=== PATIENT | male | born 1940 | race Caucasian/White ===

== ENCOUNTER → 2016-12-16 | Outpatient (CLI) | payer OTHER ==
[~2016-12-16] MED LIST: ALPR-411 PO; ASPI81TA28 PO; ATOR-26 PO; CHOL100010 PO; CHOL100041 PO; CLBCRM30 EXT; CLOB-65 TOP; CZR25 PO; DABI150C PO; ESCI10TA17 PO; FOLI1TAB7 PO; INSPMPHMLG; LOSA100T2 PO; LXP/20 PO; MELA1TAB3 PO; MOXI400T2 PO; OXYC-57 PO; PRLSR20 PO; Prednisone PO; SELENIMIN PO; TRAZ50TA35 PO
[2016-12-16 15:32] LABS: BASO % 0.5 %; BASO ABS # 0.03 K/uL (0-0.2); COMPLETE YES; EOS % 1.7 %; HEMATOCRIT 41.6 % (42-52); IG% 0.2 %; LYMPH % 36.4 %; MEAN CELL VOLUME 85.8 fL (80-100); MEAN CORPUSCULAR HGB CONC 32.7 g/dl (32-36); MEAN PLATELET VOLUME 10.1 fL (7.4-10.4); MONO % 18.2 %; PLATELET COUNT 254 K/uL (130-400); RED BLOOD COUNT 4.85 M/uL (4.7-6.1); WHITE BLOOD COUNT 6.04 K/uL (4.8-10.8)
[2016-12-16 16:11] LABS: ALT/SGPT 48 U/L (12-78); BLOOD UREA NITROGEN 19 mg/dl (7-18); BUN/CREATININE RATIO 19.7 (10-20); CALCIUM 9.1 mg/dl (8.5-10.1); CARBON DIOXIDE 28 mmol/L (21-32); CHLORIDE 102 mmol/L (98-107); CREATININE 0.95 mg/dl (0.60-1.40); GLUCOSE 250 mg/dl (70-99); POTASSIUM 3.7 mmol/L (3.5-5.1); SODIUM 138 mmol/L (136-145)
[2016-12-16 16:14] LABS: AST/SGOT 31 U/L (15-37)
[2016-12-17 06:41] LABS: ESTIMATED AVERAGE GLUCOSE 160 mg/dl; HA1C FLAG Normal (Normal)
== END | disposition home or self-care (01) ==
LOC: C.LAB 14:30
DX: E11.9 Type 2 diabetes mellitus without complications (principal); E78.5 Hyperlipidemia, unspecified; D64.9 Anemia, unspecified

== ENCOUNTER → 2017-01-27 | Outpatient (CLI) | payer OTHER ==
--- NOTE | 2017-01-27 11:56 | DIAGNOSTIC IMAGING REPORT ---
BILATERAL CAROTID DOPPLER STUDY HISTORY: Dizziness. Abnormal gait. COMPARISON: None. TECHNIQUE: Real-time, grayscale, and color Doppler sonography of the carotid arteries was performed. Imaging reviewed in the transverse and longitudinal planes. All measurements were calculated based on NASCET criteria. FINDINGS: Antegrade flow is seen in the bilateral vertebral arteries. The brachial pressures are hemodynamically similar. Moderate calcified plaque within the bilateral proximal internal carotid arteries. The peak systolic velocity within the right ICA is 57 cm/s. The right systolic ratio is 0.7. The peak systolic velocity within the left ICA is 69 cm/s. The left systolic ratio is 0.7. IMPRESSION: No hemodynamically significant stenosis seen within the carotid arteries. Electronically signed by: Nomi Monroy M.D. 01/27/2017 11:55 AM Dictated Date/Time: 01/27/2017 11:49 AM
--- NOTE | 2017-01-27 12:12 | DIAGNOSTIC IMAGING REPORT ---
CT OF THE HEAD WITHOUT CONTRAST CLINICAL HISTORY: CEREBROVASCULAR DISEASE, GAIT APRAXIA COMPARISON STUDY: Head CT August 18, 2006. CT DOSE: 765.09 mGycm TECHNIQUE: Helical axial images of the head were obtained without IV contrast. Automated exposure control was utilized for the study. FINDINGS: No acute intracranial hemorrhage, midline shift or mass effect is present. Ventricular system is normal. Basilar cisterns are patent. There are no extra axial collections. Brain volume is normal for age. There are no findings to suggest acute dural sinus thrombosis or acute territorial infarct. There are no calvarial abnormalities. There is mild mucosal thickening of the sinuses. There are post surgical findings within the sinuses. Mastoid air cells are clear. IMPRESSION: No acute intracranial findings. Electronically signed by: Dorian Lindquist M.D. 01/27/2017 12:11 PM Dictated Date/Time: 01/27/2017 12:09 PM
--- NOTE | 2017-01-31 11:54 | CODING QUERY MEDICAL NECESSITY ---
SUPPORTING DIAGNOSIS NEEDED Dr. Crystal, A supporting diagnosis is required for the test/procedure performed on this patient in order for us to be reimbursed by the patient's insurance. Please provide a supporting diagnosis for the following test/procedure listed below next to the test name along with your signature. *If there is no additional diagnosis for this patient that would support the following test/procedure please document that below next to the test/procedure. Test(s)/Procedure(s) that require a supporting diagnosis: * ([id number]) (CAROTID DOP) DUPLEX NECK ARTER DIAGNOSIS: DATE OF SERVICE: 01/27/17 Provider Signature: Date: Thank you Joseluis Romero Health Information Management Once completed, please kindly fax back to [phone] For questions please call [phone]
== END | disposition home or self-care (01) ==
LOC: C.ULTR 10:53
PROVIDERS: ATTEND Psychiatry & Neurology Neurology
DX: I67.9 Cerebrovascular disease, unspecified (principal); R48.2 Apraxia

== ENCOUNTER → 2017-03-06 | Outpatient (CLI) | payer OTHER ==
[2017-03-06 17:01] LABS: PROSTATE SPECIFIC ANTIGEN 2.84 ng/ml (0.000-4.000); THYROID STIMULATING HORMONE 0.615 uIu/ml (0.300-4.500)
[2017-03-07 07:30] LABS: ESTIMATED AVERAGE GLUCOSE 177 mg/dl; HA1C FLAG Normal (Normal)
== END | disposition home or self-care (01) ==
LOC: C.LAB 15:17
PROVIDERS: ATTEND Urology
DX: E11.9 Type 2 diabetes mellitus without complications (principal); N40.1 Benign prostatic hyperplasia with lower urinary tract symptoms

== ENCOUNTER → 2017-05-02 | Outpatient (CLI) | payer OTHER ==
[2017-05-02 11:39] LABS: BASO % 0.6 %; BASO ABS # 0.03 K/uL (0-0.2); COMPLETE YES; EOS % 2.1 %; HEMATOCRIT 45.1 % (42-52); IG% 0.4 %; LYMPH % 26.3 %; LYMPH ABS # 1.28 K/uL (1.2-3.4); MEAN CELL VOLUME 94.4 fL (80-100); MEAN CORPUSCULAR HEMOGLOBIN 32.6 pg (25-34); MEAN CORPUSCULAR HGB CONC 34.6 g/dl (32-36); MEAN PLATELET VOLUME 10.3 fL (7.4-10.4); MONO % 16.8 %; NEUT % 53.8 %; PLATELET COUNT 244 K/uL (130-400); RED BLOOD COUNT 4.78 M/uL (4.7-6.1); WHITE BLOOD COUNT 4.87 K/uL (4.8-10.8)
[2017-05-02 12:05] LABS: ALT/SGPT 48 U/L (12-78); BLOOD UREA NITROGEN 18 mg/dl (7-18); BUN/CREATININE RATIO 19.8 (10-20); CALCIUM 9.4 mg/dl (8.5-10.1); CARBON DIOXIDE 31 mmol/L (21-32); CHLORIDE 101 mmol/L (98-107); GLUCOSE 190 mg/dl (70-99); POTASSIUM 3.5 mmol/L (3.5-5.1); SODIUM 138 mmol/L (136-145)
[2017-05-02 12:08] LABS: AST/SGOT 29 U/L (15-37)
[2017-05-02 12:16] LABS: RATIO 49.4 mcg/mg (0-30.0)
== END | disposition home or self-care (01) ==
LOC: C.LAB 10:40
DX: D64.9 Anemia, unspecified (principal); I10 Essential (primary) hypertension; E78.5 Hyperlipidemia, unspecified

== ENCOUNTER 2017-06-17 09:37 | Inpatient (IN) | payer OTHER ==
[~2017-06-17] VITALS: Ht 170.2 cm; Wt 91.0 kg
[~2017-06-17 09:37] MED LIST changes: -CHOL100041 PO; -CLBCRM30 EXT; -CZR25 PO; -LXP/20 PO; -MELA1TAB3 PO; -OXYC-57 PO
[2017-06-17] MEDS ORDERED: LXP/20 PO (10:16)
[2017-06-17] MEDS ORDERED: CLBCRM30 EXT (10:16)
[2017-06-17] MEDS ORDERED: CZR25 PO (10:16)
[2017-06-17] MEDS ORDERED: CHOL100041 PO (10:16)
[2017-06-17] MEDS ORDERED: MELA1TAB3 PO (10:16)
--- NOTE | 2017-06-17 10:39 | DIAGNOSTIC IMAGING REPORT ---
R KNEE 3 VIEWS CLINICAL HISTORY: 77 years-old Male presenting with right knee edema . TECHNIQUE: Frontal, lateral, and sunrise views of the right knee were obtained. COMPARISON: None. FINDINGS: No acute fracture or malalignment. Large knee joint effusion noted. Minimal osteophyte formation at the medial compartment and patellofemoral compartment. Minimal lateral subluxation of the patella likely secondary to the presence of the large effusion. Osteopenia may be present. Atherosclerosis. IMPRESSION: Large knee joint effusion. No radiographic evidence of acute osseous injury. Electronically signed by: Surjit Mcduffie M.D. 06/17/2017 10:37 AM Dictated Date/Time: 06/17/2017 10:36 AM
--- NOTE | 2017-06-17 10:52 | DIAGNOSTIC IMAGING REPORT ---
R ANKLE MIN 3 VIEWS ROUTINE CLINICAL HISTORY: Right ankle pain following fall. COMPARISON: None FINDINGS: There is an acute mildly displaced fracture of the medial malleolus. There is no ankle mortise widening. There is moderate ankle soft tissue swelling, greater medially. There is a suspected acute nondisplaced distal right fibular fracture. There is an equivocal nondisplaced fracture of the posterior distal right tibia. There is extensive vascular calcification. IMPRESSION: 1. Acute mildly displaced fracture of the medial malleolus. 2. Probable acute nondisplaced right fibular fracture. 3. Possible nondisplaced fracture of the posterior distal right tibia. 4. No ankle mortise widening. Electronically signed by: Dorian Lindquist M.D. 06/17/2017 10:51 AM Dictated Date/Time: 06/17/2017 10:35 AM
--- NOTE | 2017-06-17 11:15 | EMERGENCY ROOM VISIT NOTE ---
ED Visit Note First contact with patient: 10:08 CHIEF COMPLAINT: Right Knee and Ankle pain HISTORY OF PRESENT ILLNESS: This 77 yo male patient presents to the emergency department one day after sustaining an injury to the right ankle and foot with a twisting, eversion motion when he was climbing a ladder and fell off. The patient complains of pain along the outside of the ankle. The patient reports radiating pain into the foot. The patient rates the pain as sharp and 7/10. The patient is able to bear weight on the foot, however, this significantly worsens the discomfort. Constant pain, worse with movement, weight bearing, and the dependent position. There is diffuse knee pain, the patient is able to move their toes. No numbness or weakness of the foot, no laceration, but there is some redness noted on the anterior aspect of the ankle which is warm. The patient has not had a previous fracture to this ankle. The patient has taken no medications for the pain. The patient denies any other injury. The patient states he was attempting to use crutches which she had at home, however was unsuccessful due to his instability. REVIEW OF SYSTEMS: A 6 system review of systems was completed with positives and pertinent negatives listed in the HPI. ALLERGIES: None MEDICATIONS: Please see list. Medication list was reviewed at bedside. PMH: Diabetes mellitus, fibrosis, atrial fibrillation, pacemaker, hyperlipidemia , hypertension SOCIAL HISTORY: The patient lives locally with family. He denies drug, alcohol , tobacco use. PHYSICAL EXAM: Vital Signs: Reviewed Nurse's notes, vital signs stable. GENERAL : This is a 77-year-old white male, no acute distress, but appears in pain, well -developed, well-nourished. MENTAL STATUS: Alert, oriented to person place and time, and cooperative. MUSCULOSKELETAL: The right ankle is moderately swollen and tender over the medial malleolus, but the skin is intact and there is no ligamentous instability. There is no fifth metatarsal tenderness. There is no tenderness over the rest of the foot. There is a small, erythematous patch on the anterior aspect of the right ankle. There is no calf or tibia/fibular tenderness, but there is distal, lateral knee tenderness. There is no visual deformity. The foot and toes are warm and well-perfused. Dorsalis pedis pulse 2+. Sensation to pain and light touch is intact. Capillary refill less than 2 seconds. RADIOLOGY: X-Ray Right Ankle: R ANKLE MIN 3 VIEWS ROUTINE CLINICAL HISTORY: Right ankle pain following fall. COMPARISON: None FINDINGS: There is an acute mildly displaced fracture of the medial malleolus. There is no ankle mortise widening. There is moderate ankle soft tissue swelling, greater medially. There is a suspected acute nondisplaced distal right fibular fracture. There is an equivocal nondisplaced fracture of the posterior distal right tibia. There is extensive vascular calcification. IMPRESSION: 1. Acute mildly displaced fracture of the medial malleolus. 2. Probable acute nondisplaced right fibular fracture. 3. Possible nondisplaced fracture of the posterior distal right tibia. 4. No ankle mortise widening. Electronically signed by: Dorian Lindquist M.D. 06/17/2017 10:51 AM Dictated Date/Time: 06/17/2017 10:35 AM X-Ray Right Knee: R KNEE 3 VIEWS CLINICAL HISTORY: 77 years-old Male presenting with right knee edema . TECHNIQUE: Frontal, lateral, and sunrise views of the right knee were obtained. COMPARISON: None. FINDINGS: No acute fracture or malalignment. Large knee joint effusion noted. Minimal osteophyte formation at the medial compartment and patellofemoral compartment. Minimal lateral subluxation of the patella likely secondary to the presence of the large effusion. Osteopenia may be present. Atherosclerosis. IMPRESSION: Large knee joint effusion. No radiographic evidence of acute osseous injury. Electronically signed by: Surjit Mcduffie M.D. 06/17/2017 10:37 AM Dictated Date/Time: 06/17/2017 10:36 AM EMERGENCY DEPARTMENT COURSE: I examined the patient. X-rays of the right ankle and knee were reviewed by myself and read by radiology and reveal findings as previously described. I did attempt to consult with Dr. Thorne and was advised by the secretaries that he would be coming in to see a patient and that I should find him then. After approximately 30-45 minutes, I was unsuccessful at locating Dr. Thorne, so I did ask to have him paged again, and was given the phone number for his personal cell phone. I did attempt to call Dr. Thorne twice, leaving 1 voicemail. I still had not heard back from him, so again spoke with the secretaries, and was told that he was in the operating room. The secretaries did encourage me to call the operating room extension and ask for Dr. Thorne. I did this and was given the circulating RN who advised me that she would have Dr. Thorne call me after he closes his surgery. I did speak with Dr. Thorne who recommended admission and surgery. Based on the patient's PMH, he will be admitted to the hospitalist service. This was discussed with the patient and he is in agreement. The patient did initially refuse pain medication, but does request it now. He was given 4mg Morphine IM and 4mg Zofran SL. An IV was then initiated per the request of the hospitalist and labs were drawn. The patient was seen and evaluated by Dr. Lozoya. A posterior leg with stirrup orthoglass splint was applied to the ankle under my direction and the position was satisfactory. Neurovascular status was rechecked and intact. The patient was seen by the hospitalist regarding admission. Please see his dictation for further management and care. DIFFERENTIAL DIAGNOSIS: fracture, contusion, cellulitis, sprain, strain, DM neuropathy, and others. DIAGNOSIS: distal tibia/fibula fracture of the right leg Problem List Medical Problems: (1) High cholesterol Status: Chronic (2) HTN (hypertension) Status: Chronic (3) Pacemaker Status: Chronic Surgical Problems: (1) History of cardiac catheterization Status: Resolved (2) History of splenectomy Status: Resolved Current/Historical Medications Scheduled Aspirin (Aspirin Ec), 81 MG PO QAM Atorvastatin (Lipitor), 80 MG PO QAM Cholecalciferol (D 1000), 4,000 UNITS PO DAILY Dabigatran Etexilate Mesylate (Pradaxa), 150 MG PO BID Escitalopram Oxalate (Escitalopram Oxalate), 20 MG PO DAILY Folic Acid (Folvite), 2 MG PO QAM Insulin Human Lispro (Insulin Humalog Pump ), 1 EA N/A UD Losartan Potassium (Losartan Potassium), 25 MG PO DAILY Melatonin-Pyridoxine (Melatonin), 1 TAB PO HS Moxifloxacin Hcl (Avelox), 1 TAB PO DIRECTED Omeprazole (Prilosec), 20 MG PO QAM Trazodone Hcl (Trazodone), 25 MG PO HS Scheduled PRN Clobetasol Propionate (Clobetasol Propionate Cream 0.05%), 1 APPLN EXT BID PRN for Itching Allergies Coded Allergies: No Known Allergies (Verified , 06/17/17) Vital Signs Date Time Temp Pulse Resp B/P (MAP) Pulse Ox O2 Delivery O2 Flow Rate FiO2 06/17/17 15:48 62 16 140/64 96 06/17/17 14:40 96 Room Air 06/17/17 14:19 63 16 145/73 96 Room Air 06/17/17 12:03 60 18 157/78 96 Room Air 06/17/17 09:41 36.5 66 16 145/66 96 Room Air Laboratory Results 06/17/17 15:24 Red Blood Count 4.59, Mean Corpuscular Volume 94.3, Mean Corpuscular Hemoglobin 32.9, Mean Corpuscular Hemoglobin Concent 34.9, Mean Platelet Volume 9.8, Neutrophils (%) (Auto) 63.7, Lymphocytes (%) (Auto) 18.6, Monocytes (%) (Auto) 15.8, Eosinophils (%) (Auto) 1.2, Basophils (%) (Auto) 0.3, Neutrophils # (Auto ) 7.08, Lymphocytes # (Auto) 2.06, Monocytes # (Auto) 1.75, Eosinophils # (Auto ) 0.13, Basophils # (Auto) 0.03 06/17/17 13:35 Test 06/17/17 13:35 06/17/17 15:24 Anion Gap 4.0 mmol/L (3-11) Est Creatinine Clear Calc Drug Dose 67.1 ml/min Estimated GFR () 86.8 Estimated GFR (Non- 74.9 BUN/Creatinine Ratio 15.6 (10-20) Estimated Average Glucose 171 mg/dl Hemoglobin A1c 7.6 % (4.5-5.6) Calcium Level 9.6 mg/dl (8.5-10.1) Total Bilirubin 1.6 mg/dl (0.2-1) Aspartate Amino Transf (AST/SGOT) 22 U/L (15-37) Alanine Aminotransferase (ALT/SGPT) 35 U/L (12-78) Alkaline Phosphatase 81 U/L (45-117) Total Protein 7.6 gm/dl (6.4-8.2) Albumin 3.9 gm/dl (3.4-5.0) Globulin 3.7 gm/dl (2.5-4.0) Albumin/Globulin Ratio 1.1 (0.9-2) White Blood Count 11.09 K/uL (4.8-10.8) Red Blood Count 4.59 M/uL (4.7-6.1) Hemoglobin 15.1 g/dL (14.0-18.0) Hematocrit 43.3 % (42-52) Mean Corpuscular Volume 94.3 fL (80-100) Mean Corpuscular Hemoglobin 32.9 pg (25-34) Mean Corpuscular Hemoglobin Concent 34.9 g/dl (32-36) Platelet Count 241 K/uL (130-400) Mean Platelet Volume 9.8 fL (7.4-10.4) Neutrophils (%) (Auto) 63.7 % Lymphocytes (%) (Auto) 18.6 % Monocytes (%) (Auto) 15.8 % Eosinophils (%) (Auto) 1.2 % Basophils (%) (Auto) 0.3 % Neutrophils # (Auto) 7.08 K/uL (1.4-6.5) Lymphocytes # (Auto) 2.06 K/uL (1.2-3.4) Monocytes # (Auto) 1.75 K/uL (0.11-0.59) Eosinophils # (Auto) 0.13 K/uL (0-0.5) Basophils # (Auto) 0.03 K/uL (0-0.2) RDW Standard Deviation 51.5 fL (36.4-46.3) RDW Coefficient of Variation 15.1 % (11.5-14.5) Immature Granulocyte % (Auto) 0.4 % Immature Granulocyte # (Auto) 0.04 K/uL (0.00-0.02) Medications Administered Medications (Trade) Dose Ordered Sig/Corine Route Start Time Stop Time Status Last Admin Dose Admin Morphine Sulfate (MoRPHine SULFATE INJ) 4 mg NOW STAT IM 06/17/17 12:49 06/17/17 12:55 DC 06/17/17 13:19 4 MG Ondansetron HCl (Zofran Odt) 4 mg NOW STAT PO 06/17/17 12:49 06/17/17 12:55 DC 06/17/17 13:19 4 MG Departure Information Impression Primary Impression: Tibia/fibula fracture Additional Impressions: Fall Cellulitis Dispostion Home / Self-Care Condition GOOD Referrals Raleigh Morin Jr,D.O. (PCP) Patient Instructions ED Fx Ankle General, [facility] Additional Instructions ORTHOPEDIC INSTRUCTIONS: Ibuprofen(Motrin, Advil) may be used for fever or pain. Use 600mg every six hours as needed. Take with food. Avoid using more than 2400mg in a 24 hour period. Do not use 2400mg per day for more than three consecutive days without physician direction. Prolonged inappropriate use can lead to stomach upset or ulcers. (AND/OR) Acetaminophen(Tylenol) may be used for fever or pain. Use 1000mg every six hours as needed. Avoid using more than 3000mg in a 24 hour period. Ice compresses for 20 minutes at a time four times daily for 2-3 days. Use the crutches as instructed. Rest and elevate your injury. Do not get the splint wet. If your splint feels excessively tight, you have worsening pain, develop numbness or tingling, or your digits appear blue, loosen the cathy wrap. Then reapply the cathy wrap gently without removing the splint. If your symptoms are not quickly relieved return to the ER for re- evaluation. Return to the ER immediately for any numbness, tingling, severe pain, extreme swelling in the extremity or as needed. Call [facility], [phone], [] to arrange follow up for your injury. Follow-up with your primary care physician in 2 to 3 days for a recheck of your current condition. Problem Qualifiers Primary Impression: Tibia/fibula fracture Encounter type: initial encounter Fracture type: closed Laterality: right Qualified Codes: S82.201A - Unspecified fracture of shaft of right tibia, initial encounter for closed fracture; S82.401A - Unspecified fracture of shaft of right fibula, initial encounter for closed fracture Additional Impressions: Fall Encounter type: initial encounter Qualified Codes: W19.XXXA - Unspecified fall, initial encounter Cellulitis Site of cellulitis: extremity Site of cellulitis of extremity: lower extremity Laterality: right Qualified Codes: L03.115 - Cellulitis of right lower limb
[2017-06-17] MEDS ORDERED: MoRPHine SULFATE 4 MG/ML 1 ML CARP\\VIAL IM STA (12:49)
[2017-06-17] MEDS ORDERED: ONDANSETRON 4MG OD TAB PO STA (12:49)
--- NOTE | 2017-06-17 13:15 | EMERGENCY ROOM VISIT NOTE ---
ED Visit Note First contact with patient: 10:08 I have personally seen and evaluated the patient with the physician operating room assistant. I agree with the diagnostic/management decisions and have personally been involved in these decisions and agree with the diagnosis.
[2017-06-17 14:06] LABS: BUN/CREATININE RATIO 15.6 (10-20); CALCIUM 9.6 mg/dl (8.5-10.1); CREATININE 0.96 mg/dl (0.60-1.40); POTASSIUM 4.1 mmol/L (3.5-5.1)
[2017-06-17 14:09] LABS: ALB/GLOB RATIO 1.1 (0.9-2)
[2017-06-17 14:40] VITALS: O2SAT 96; Ht 170.2 cm; Wt 91.0 kg
[2017-06-17] MEDS ORDERED: ONDANSETRON INJ 2 MG/ML 2 ML VIAL IV PRN (15:00)
[2017-06-17] MEDS ORDERED: ACETAMINOPHEN 325 MG TAB PO PRN (15:00)
[2017-06-17] MEDS ORDERED: ALUMINUM/MAGNESIUM/SIMETH (MAALOX MAX) 30 ML UDC PO PRN (15:00)
[2017-06-17] MEDS ORDERED: POLYETHYLENE (MIRALAX) 17 GM PACK PO PRN (15:00)
[2017-06-17] MEDS ORDERED: KETOROLAC TROMETHAMINE 15 MG/ML VIAL IM PRN (15:00)
[2017-06-17] MEDS ORDERED: MAGNESIUM HYDROXIDE SUSP 30 ML UDC PO PRN (15:00)
[2017-06-17 15:08] LABS: ESTIMATED AVERAGE GLUCOSE 171 mg/dl; HA1C FLAG Normal (Normal)
[2017-06-17] MEDS ORDERED: GLUCAGON FOR INJ 1 MG VIAL SQ PRN (15:15)
[2017-06-17] MEDS ORDERED: DEXTROSE 50% 50 ML SYR IV PRN (15:15)
[2017-06-17] MEDS ORDERED: GLUCOSE 40% GEL 15 GM TUBE PO PRN (15:15)
[2017-06-17] MEDS ORDERED: GLUCOSE 10 TABS/TUBE PO PRN (15:15)
--- NOTE | 2017-06-17 15:18 | History and Physical ---
History & Physical Date & Time of Service: Jun 17, 2017 at 15:02 Chief Complaint: Right Knee/Ankle Pain-Fell Off A Step Stool Primary Care Physician: Raleigh Morin JrD.O. History of Present Illness Source: patient, family ( at bedside), clinic records, hospital records Patient is a pleasant 77 y/o male, with PMHx of IDDM, HLD, HTN, a.fib, s/p pacer due to heart block, BPH, and GERD, who presented to the ED because of worsening R foot discomfort. Patient was climbing a step ladder on 06/16 and fell off, twisting his R foot. He is able to bear weight, but experiences significant pain. He denies syncope, LOC, or head injury. Fall was strictly mechanical. Dr. Thorne is planning for ORIF on 06/18. Has tolerated surgical procedures well in the past. No h/o CAD, MD, CHF, TIA/CVA, PE/DVT. Patient denies any fever, chills, sweats, lightheadedness, dizziness, vision changes, CP , palpitations, edema, SOB, wheezing, cough, abdominal pain, nausea, vomiting, diarrhea, urinary symptoms, melena, numbness/tingling, weakness, anxiety/ depression, active bleeding, or new skin discoloration/changes. Past Medical/Surgical History Medical Problems: IDDM HLD HTN a.fib s/p pacer due to heart block BPH GERD Surgical Problems: s/p pacemaker splenectomy hernia repair tonsillectomy Family History Noncontributory Social History Smoking Status: Never Smoker Smokeless Tobacco Use: No Alcohol Use: none Drug Use: none Marital Status: Housing status: lives with family Occupational Status: retired Immunizations History of Influenza Vaccine: Yes Influenza Vaccine Date: Jun 08, 2015 History of Tetanus Vaccine?: Unknown History of Pneumococcal: Yes Pneumococcal Date: Sep 08, 2009 History of Hepatitis B Vaccine: Unknown Multi-Drug Resistant Organisms History of MDRO: No Allergies Coded Allergies: No Known Allergies (Verified , 06/17/17) Home Medications Scheduled Aspirin (Aspirin Ec), 81 MG PO QAM Atorvastatin (Lipitor), 80 MG PO QAM Cholecalciferol (D 1000), 4,000 UNITS PO DAILY Dabigatran Etexilate Mesylate (Pradaxa), 150 MG PO BID Escitalopram Oxalate (Escitalopram Oxalate), 20 MG PO DAILY Folic Acid (Folvite), 2 MG PO QAM Insulin Human Lispro (Insulin Humalog Pump ), 1 EA N/A UD Losartan Potassium (Losartan Potassium), 25 MG PO DAILY Melatonin-Pyridoxine (Melatonin), 1 TAB PO HS Moxifloxacin Hcl (Avelox), 1 TAB PO DIRECTED Omeprazole (Prilosec), 20 MG PO QAM Trazodone Hcl (Trazodone), 25 MG PO HS Scheduled PRN Clobetasol Propionate (Clobetasol Propionate Cream 0.05%), 1 APPLN EXT BID PRN for Itching Oxycodone/Acetaminophen 5MG/325MG (Percocet 5MG/325MG), 1-2 TABLETS PO Q6 PRN for Pain Physical Exam Vital Signs Date Time Temp Pulse Resp B/P (MAP) Pulse Ox O2 Delivery O2 Flow Rate FiO2 06/17/17 14:19 63 16 145/73 96 Room Air 06/17/17 12:03 60 18 157/78 96 Room Air 06/17/17 09:41 36.5 66 16 145/66 96 Room Air General Appearance: no apparent distress Head: normocephalic, atraumatic Eyes: normal inspection, PERRL ENT: hearing grossly normal Neck: supple Respiratory/Chest: lungs clear, no respiratory distress, no accessory muscle use Cardiovascular: regular rate, rhythm Abdomen/GI: normal bowel sounds, non tender, soft Back: normal inspection Extremities/Musculoskelatal: no calf tenderness, no pedal edema, + pertinent finding (RLE in splint ) Neurologic/Psych: alert, normal mood/affect, oriented x 3 Skin: normal color, warm/dry, no rash Diagnostics Laboratory Results Results Past 24 Hours Test 06/17/17 13:22 06/17/17 13:35 Range/Units Sodium Level 140 136-145 mmol/L Potassium Level 4.1 3.5-5.1 mmol/L Chloride Level 106 98-107 mmol/L Carbon Dioxide Level 29 21-32 mmol/L Anion Gap 4.0 3-11 mmol/L Blood Urea Nitrogen 15 7-18 mg/dl Creatinine 0.96 0.60-1.40 mg/dl Est Creatinine Clear Calc Drug Dose 67.1 ml/min Estimated GFR () 86.8 Estimated GFR (Non- 74.9 BUN/Creatinine Ratio 15.6 10-20 Random Glucose 112 70-99 mg/dl Calcium Level 9.6 8.5-10.1 mg/dl Total Bilirubin 1.6 0.2-1 mg/dl Aspartate Amino Transf (AST/SGOT) 22 15-37 U/L Alanine Aminotransferase (ALT/SGPT) 35 12-78 U/L Alkaline Phosphatase 81 45-117 U/L Total Protein 7.6 6.4-8.2 gm/dl Albumin 3.9 3.4-5.0 gm/dl Globulin 3.7 2.5-4.0 gm/dl Albumin/Globulin Ratio 1.1 0.9-2 Diagnostic Radiology R KNEE 3 VIEWS CLINICAL HISTORY: 77 years-old Male presenting with right knee edema . TECHNIQUE: Frontal, lateral, and sunrise views of the right knee were obtained. COMPARISON: None. FINDINGS: No acute fracture or malalignment. Large knee joint effusion noted. Minimal osteophyte formation at the medial compartment and patellofemoral compartment. Minimal lateral subluxation of the patella likely secondary to the presence of the large effusion. Osteopenia may be present. Atherosclerosis. IMPRESSION: Large knee joint effusion. No radiographic evidence of acute osseous injury. Electronically signed by: Surjit Mcduffie M.D. 06/17/2017 10:37 AM Dictated Date/Time: 06/17/2017 10:36 AM The status of this report is Signed. Draft = Not yet reviewed or approved by Radiologist. Signed = Reviewed and approved by Radiologist. R ANKLE MIN 3 VIEWS ROUTINE CLINICAL HISTORY: Right ankle pain following fall. COMPARISON: None FINDINGS: There is an acute mildly displaced fracture of the medial malleolus. There is no ankle mortise widening. There is moderate ankle soft tissue swelling, greater medially. There is a suspected acute nondisplaced distal right fibular fracture. There is an equivocal nondisplaced fracture of the posterior distal right tibia. There is extensive vascular calcification. IMPRESSION: 1. Acute mildly displaced fracture of the medial malleolus. 2. Probable acute nondisplaced right fibular fracture. 3. Possible nondisplaced fracture of the posterior distal right tibia. 4. No ankle mortise widening. Electronically signed by: Dorian Lindquist M.D. 06/17/2017 10:51 AM Dictated Date/Time: 06/17/2017 10:35 AM The status of this report is Signed. Draft = Not yet reviewed or approved by Radiologist. Signed = Reviewed and approved by Radiologist. Impression Assessment and Plan Patient is a pleasant 77 y/o male, with PMHx of IDDM, HLD, HTN, a.fib, s/p pacer due to heart block, BPH, and GERD, who presented to the ED because of worsening R foot discomfort. R tibia/fibula fracture: - Admit to med/surg - IV Toradol, Tylenol, and IV Morphine PRN for pain control - NPO after midnight for surgical procedure - Will hold ASA and Pradaxa preop - Consulted orthopedics A.fib, s/p pacer due to heart block- follows w/ Dr. Martin: - Hold Pradaxa and ASA as above - EKG w/ no significant changes IDDM- HgbA1c 7.6% on 06/17/17: May use own pump- bringing in replacement supplies for tomorrow HLD: Continue Lipitor 40 mg HS HTN: Continue Losartan 25 mg daily Anxiety: Continue Lexapro 20 mg daily, Trazodone 25 mg HS GI Prophylaxis: Protonix daily DVT prophylaxis: no chemical anticoagulation at this time due to upcoming surgical procedure Code Status: LEVEL I, FULL Dispo: From home, lives w/ - social media manager consulted .Attending Addendum: I have physically seen and examined this patient, have directed the physician assistants medical activities, and agree with the H&P as noted above with the following exceptions as noted. Assessment and Plan: Right tibia/fibula fracture-- Admitted to MedSurg floor. Tylenol for mild pain, Toradol IV for moderate pain and morphine IV for severe pain. Nothing by mouth after midnight except medications. Hold aspirin and Pradaxa. Consult orthopedics. Atrial fibrillation/status post pacer/hypertension-- hold aspirin and Pradaxa as noted above Continue losartan 25 mg by mouth daily with hold parameters. Diabetes mellitus-- Patient will use own pump and own coverage scale. Hyperlipidemia-- Continue Lipitor 40 mg at bedtime Anxiety-- continue Lexapro and trazodone Level of Care Med/Surg Advanced Directives Existing Advance Directive: No Existing Living Will: No Existing Power of Heel Builder: No Resuscitation Status FULL RESUSCITATION VTE Prophylaxis VTE Risk Assessment Done? Y/N: Yes Risk Level: Moderate Given or contraindicated: SCD's, Contraindicated Social Service Consult None Apply
[2017-06-17 15:31] LABS: BASO % 0.3 %; BASO ABS # 0.03 K/uL (0-0.2); COMPLETE YES; EOS % 1.2 %; HEMATOCRIT 43.3 % (42-52); IG% 0.4 %; LYMPH % 18.6 %; LYMPH ABS # 2.06 K/uL (1.2-3.4); MEAN CELL VOLUME 94.3 fL (80-100); MEAN CORPUSCULAR HEMOGLOBIN 32.9 pg (25-34); MEAN CORPUSCULAR HGB CONC 34.9 g/dl (32-36); MEAN PLATELET VOLUME 9.8 fL (7.4-10.4); MONO % 15.8 %; NEUT % 63.7 %; PLATELET COUNT 241 K/uL (130-400); RED BLOOD COUNT 4.59 M/uL (4.7-6.1); WHITE BLOOD COUNT 11.09 K/uL (4.8-10.8)
--- NOTE | 2017-06-17 15:47 | Anesthesiology Progress Note ---
Pre-OP Anesthesia Assessment Date of Note Jun 17, 2017. Review patient information reviewed, chart reviewed, labs reviewed, acceptable for surgery Notes 77 yo male scheduled for ORIF right ankle fracture. PMH is significant for DM, HTN, GERD, pacemaker. He has had GA in the past, reportedly slow to awaken but no other problems. Recent anti-platelet drug administration contraindicates use of conduction anesthetic. GA discussed. Pt expressed understanding and signed informed consent.
[2017-06-17 16:00] VITALS: BP 134/74; PULSE 76; TEMP 36.7; O2SAT 95
[2017-06-17] MEDS ORDERED: INSULIN HUMAN LISPRO (humaLOG) 100 UNITS/ML VIAL SC PRN (18:15)
--- NOTE | 2017-06-17 18:24 | Orthopedic Consultation ---
Orthopedic Consultation Date of Consultation: Jun 17, 2017. Attending Physician: Vamsi Nicole M.D. Reason for Consultation: Right ankle pain History of Present Illness Antoine is a 77 y/o male who injured his ankle yesterday. He was stepping off a step ladder and sustained a twisting type injury to his right leg, injuring his ankle and knee. He was able to get around yesterday using a cane but came to the ED today because of increasing pain and swelling. No previous knee problems , and just some mild ankle sprains in the past. xrays were obtained and they do show a displaced medial malleolus fracture. He has been admitted by the hospitalist service. Past Medical/Surgical History Medical Problems: (1) Cellulitis Status: Acute (2) Fall Status: Acute (3) Tibia/fibula fracture Status: Acute PMH: diabetes, GERD, a. fib, heart block, BPH, HTN Social History Smoking Status: Never Smoker Drug Use: none Marital Status: Housing Status: lives with significant other Occupation Status: retired Allergies Coded Allergies: No Known Allergies (Verified , 06/17/17) Home Medications Scheduled Aspirin (Aspirin Ec), 81 MG PO QAM Atorvastatin (Lipitor), 80 MG PO QAM Cholecalciferol (D 1000), 4,000 UNITS PO DAILY Dabigatran Etexilate Mesylate (Pradaxa), 150 MG PO BID Escitalopram Oxalate (Escitalopram Oxalate), 20 MG PO DAILY Folic Acid (Folvite), 2 MG PO QAM Insulin Human Lispro (Insulin Humalog Pump ), 1 EA N/A UD Losartan Potassium (Losartan Potassium), 25 MG PO DAILY Melatonin-Pyridoxine (Melatonin), 1 TAB PO HS Moxifloxacin Hcl (Avelox), 1 TAB PO DIRECTED Omeprazole (Prilosec), 20 MG PO QAM Trazodone Hcl (Trazodone), 25 MG PO HS Scheduled PRN Clobetasol Propionate (Clobetasol Propionate Cream 0.05%), 1 APPLN EXT BID PRN for Itching Current Inpatient Medications Current Inpatient Medications Medications (Trade) Dose Ordered Sig/Corine Route Start Time Stop Time Status Last Admin Dose Admin Acetaminophen (Tylenol Tab) 650 mg Q4H PRN PO 06/17/17 15:00 07/17/17 14:59 Al Hydrox/Mg Hydrox/Simethicone (Maalox Max Susp) 15 ml Q4H PRN PO 06/17/17 15:00 07/17/17 14:59 Magnesium Hydroxide (Milk Of Magnesia Susp) 30 ml Q6H PRN PO 06/17/17 15:00 07/17/17 14:59 Polyethylene (Miralax Powder Packet) 17 gm DAILY PRN PO 06/17/17 15:00 07/17/17 14:59 Ondansetron HCl (Zofran Inj) 4 mg Q6H PRN IV 06/17/17 15:00 07/17/17 14:59 Pantoprazole Sodium (Protonix Tab) 40 mg QAM PO 06/18/17 09:00 07/18/17 08:59 Atorvastatin Calcium (Lipitor Tab) 80 mg QAM PO 06/18/17 09:00 07/18/17 08:59 Escitalopram Oxalate (Lexapro Tab) 20 mg DAILY PO 06/18/17 09:00 07/18/17 08:59 Folic Acid (Folvite Tab) 2 mg QAM PO 06/18/17 09:00 07/18/17 08:59 Insulin Human Lispro (HumaLOG INSULIN PUMP) 1 ea UD N/A 06/17/17 15:00 07/17/17 14:59 UNV Losartan Potassium (coZAAR TAB) 25 mg DAILY PO 06/18/17 09:00 07/18/17 08:59 Trazodone HCl (Desyrel Tab) 25 mg HS PO 06/17/17 21:00 07/17/17 20:59 Ketorolac Tromethamine (Toradol Inj) 15 mg Q6H PRN IM 06/17/17 15:00 06/19/17 14:59 Morphine Sulfate (MoRPHine SULFATE INJ) 1 mg Q3H PRN IV 06/17/17 15:00 07/01/17 14:59 Glucose (Glucose 40% Gel) 15-30 GRAMS 15 GRAMS... UD PRN PO 06/17/17 15:15 07/17/17 15:14 Glucose (Glucose Chew Tab) 4-8 Tablets 4 Tabl... UD PRN PO 06/17/17 15:15 07/17/17 15:14 Dextrose (Dextrose 50% 50ML Syringe) 25-50ML OF 50% DW IV FOR... UD PRN IV 06/17/17 15:15 07/17/17 15:14 Glucagon (Glucagon Inj) 1 mg UD PRN SQ 06/17/17 15:15 07/17/17 15:14 Physical Exam Date Time Temp Pulse Resp B/P (MAP) Pulse Ox O2 Delivery O2 Flow Rate FiO2 06/17/17 15:48 62 16 140/64 96 06/17/17 14:40 96 Room Air 06/17/17 14:19 63 16 145/73 96 Room Air 06/17/17 12:03 60 18 157/78 96 Room Air 06/17/17 09:41 36.5 66 16 145/66 96 Room Air He is alert and oriented. NAD. Examination of the RLE reveals a knee effusion. No tenderness around his knee. He is able to do a straight leg raise. Full knee extension. He has a splint on his right ankle. I did not remove this. He is able to move his toes appropriately. Brisk refill. Sensation intact to touch. He does report some neuropathy. He also reports some redness anteriorly at the ankle. Otherwise he said his skin is intact. xrays show a displaced medial malleolus fx and possible posterior malleolus fx. No fracture around the knee. Laboratory Results Last 24 Hours Test 06/17/17 13:35 06/17/17 15:24 Sodium Level 140 mmol/L Potassium Level 4.1 mmol/L Chloride Level 106 mmol/L Carbon Dioxide Level 29 mmol/L Anion Gap 4.0 mmol/L Blood Urea Nitrogen 15 mg/dl Creatinine 0.96 mg/dl Est Creatinine Clear Calc Drug Dose 67.1 ml/min Estimated GFR () 86.8 Estimated GFR (Non- 74.9 BUN/Creatinine Ratio 15.6 Random Glucose 112 mg/dl Estimated Average Glucose 171 mg/dl Hemoglobin A1c 7.6 % Calcium Level 9.6 mg/dl Total Bilirubin 1.6 mg/dl Aspartate Amino Transf (AST/SGOT) 22 U/L Alanine Aminotransferase (ALT/SGPT) 35 U/L Alkaline Phosphatase 81 U/L Total Protein 7.6 gm/dl Albumin 3.9 gm/dl Globulin 3.7 gm/dl Albumin/Globulin Ratio 1.1 White Blood Count 11.09 K/uL Red Blood Count 4.59 M/uL Hemoglobin 15.1 g/dL Hematocrit 43.3 % Mean Corpuscular Volume 94.3 fL Mean Corpuscular Hemoglobin 32.9 pg Mean Corpuscular Hemoglobin Concent 34.9 g/dl Platelet Count 241 K/uL Mean Platelet Volume 9.8 fL Neutrophils (%) (Auto) 63.7 % Lymphocytes (%) (Auto) 18.6 % Monocytes (%) (Auto) 15.8 % Eosinophils (%) (Auto) 1.2 % Basophils (%) (Auto) 0.3 % Neutrophils # (Auto) 7.08 K/uL Lymphocytes # (Auto) 2.06 K/uL Monocytes # (Auto) 1.75 K/uL Eosinophils # (Auto) 0.13 K/uL Basophils # (Auto) 0.03 K/uL RDW Standard Deviation 51.5 fL RDW Coefficient of Variation 15.1 % Immature Granulocyte % (Auto) 0.4 % Immature Granulocyte # (Auto) 0.04 K/uL Assessment & Plan 1. Right ankle fx 2. Right knee effusion Plan: He has been admitted by the hospitalist service. We'll keep him npo after midnight for ORIF of the right ankle. Procedure was explained including risks, benefits, and alternatives. Consent was obtained. He would like to proceed with surgery. We might also aspirate his right knee. He will be given ancef pre op. Remington's and scd's for DVT prophylaxis.
[2017-06-17] MEDS: MoRPHine SULFATE 2 MG/ML CARP IV PRN (20:22)
[2017-06-17] MEDS ORDERED: NON-FORMULARY MEDICATION (Melatonin-Pyridoxine (Melatonin) 1 TAB) PO SCH (21:00)
[2017-06-17] MEDS: TRAZODONE HCL 50 MG TAB PO SCH (21:10)
--- NOTE | 2017-06-17 22:25 | DIAGNOSTIC IMAGING REPORT ---
CT R LOWER EXTREMITY WITHOUT CT DOSE: 165.51 mGy.cm CLINICAL HISTORY: Right knee pain. Large joint effusion. No fracture visualized on conventional radiographic imaging. TECHNIQUE: Helical images were acquired in the transverse plane. Sagittal and coronal reformatted images were acquired. A dose lowering technique was utilized adhering to the principles of ALARA. COMPARISON STUDY: Conventional radiographic study dated 06/17/2017 FINDINGS: There is a moderate to large joint effusion present. There is an acute nondisplaced fracture of the lateral tibial plateau. There is a 3 mm anterior calcified loose body. There is a very subtle chondrocalcinosis. There are degenerative changes the patellofemoral joint with tiny dorsal spur patellar spurs and subchondral cyst formation within the patella. IMPRESSION: 1. Acute nondisplaced nondepressed fracture of the lateral tibial plateau 2. Large joint effusion Electronically signed by: Emir Pack M.D. 06/17/2017 10:24 PM Dictated Date/Time: 06/17/2017 10:20 PM
[2017-06-17 23:00] VITALS: BP 151/73; PULSE 66; TEMP 37; O2SAT 93
--- NOTE | 2017-06-17 23:21 | PROGRESS NOTE ---
DATE: 06/17/2017 SUBJECTIVE: Right ankle pain/fracture. HISTORY OF PRESENT ILLNESS: A 77-year-old gentleman admitted by the medicine service for treatment of right ankle. I have seen and evaluated this patient and agree with orthopedic consultation dictated by my physician funeral director's assistant, Gonzalo Reyna earlier today. A 77-year-old gentleman who had a misstep on a ladder yesterday. He has got a displaced medial malleolus fracture. He also has a large right knee effusion. He is diabetic with underlying history of atrial fibrillation and heart block, on anticoagulation. With his diabetes, it is likely he has got some neuropathy which may make his pain sensation altered. He has been walking around on his ankle fracture for a day. The medial malleolus is displaced significantly with a high likelihood of not healing. There is a question of a fibula fracture, although I think it unlikely. PHYSICAL EXAMINATION: GENERAL: This is a pleasant male. He is sitting up in bed and talking to his and looks comfortable. EXTREMITIES: Examination of the right ankle reveals the splint to be in place. Ankle is well aligned. He can dorsiflex and plantarflex his toes appropriately. Examination of the right knee reveals a large knee effusion. He can do a straight leg raise. Range of motion is 0-90 limited by the effusion. No gross instability. Ankle x-rays show a displaced medial malleolus fracture. The mortise is pretty well maintained. Question of a fibula fracture on the lateral. He may have a small posterior malleolus fracture. A very small portion of the joint surface. X-rays of the knee were reviewed. It shows a large knee joint effusion. Joint space is well maintained. No obvious fracture. There is a question of an impacted lateral tibial plateau fracture. ASSESSMENT: A 77-year-old male with diabetes and underlying atrial fibrillation among multiple other comorbidities with: 1. Right displaced medial malleolus fracture. This fracture is displaced and unlikely to heal. There is a minimally displaced fairly small posterior malleolus fracture but I do not think there is a fibular fracture. 2. Right large knee joint effusion with possible local compression tibial plateau fracture. PLAN: He has been admitted by the hospitalist service. We are going to take him to the operating room and fix his medial malleolus. This should stabilize his ankle. In particular, with him diabetic, it will make it safe for him to be getting around as I think most likely he will put weight on this regardless. We would like to keep him nonweightbearing for a period of time. With respect to the knee, we are going to aspirate it at the time of surgery. I am also going to get a CT scan of his knee to determine how early we can start to weightbear on this. I do have a high suspicion that he has got a local compression tibial plateau fracture. We will keep him nonweightbearing for now. MTDMery
[2017-06-18] VITALS (11 sets, daily range): BP systolic 137–170; BP diastolic 65–77; PULSE 60–66; TEMP 36.5–37; O2SAT 92–95
[2017-06-18] MEDS ORDERED: CEFAZOLIN 2000 MG/60 ML D5W IV SCH (06:00)
[2017-06-18] MEDS ORDERED: CEFAZOLIN IV 2,000 MG in DEXTROSE 5% 50ML 50 ML IV ONE (06:00)
[2017-06-18] MEDS ORDERED: BUPIVACAINE 0.5 % 5 MG/1 ML PF 10ML VIAL ONE (06:18)
[2017-06-18] MEDS ORDERED: PROPOFOL IV EMULSION 10 MG/ML 20 ML VIAL IV ONE (06:34)
[2017-06-18] MEDS ORDERED: ONDANSETRON INJ 2 MG/ML 2 ML VIAL ONE (06:34)
[2017-06-18] MEDS ORDERED: LIDOCAINE HCL 2% 2 ML VIAL (20MG/ML) ONE ×2 (06:34→06:39)
[2017-06-18] MEDS ORDERED: FENTANYL CITRATE INJ 50 MCG/1 ML 2 ML VIAL ONE (06:35)
[2017-06-18] MEDS ORDERED: SODIUM CHLORIDE 0.9% INJ 10 ML VIAL ONE (06:40)
[2017-06-18] MEDS ORDERED: HYDROmorphone INJ 2 MG/ML SYR/VIAL ONE (06:40)
[2017-06-18] MEDS ORDERED: BUPIVACAINE/EPINEPHRINE 0.5% MPF 1:200,000 30 ML VIAL ONE (06:54)
--- NOTE | 2017-06-18 07:01 | History & Physical Bridge Note ---
H&P Re-Evaluation Bridge Note: I have examined the patient, reviewed the History & Physical and in the interval since the performance of the History & Physical I have noted the following changes of clinical significance: Patient does have a non-displaced lateral tibial plateau fracture. Will aspirate knee joint for comfort and place knee immobilizer.
[2017-06-18] MEDS ORDERED: EpHEDrine SULFATE INJ 50 MG/ML AMP ONE (08:26)
[2017-06-18] MEDS ORDERED: FENTANYL CITRATE INJ 50 MCG/1 ML 2 ML VIAL IV PRN (08:45)
[2017-06-18] MEDS ORDERED: ONDANSETRON INJ 2 MG/ML 2 ML VIAL IV PRN (08:45)
[2017-06-18] MEDS ORDERED: HYDROmorphone INJ 1 MG/ML SYR IV PRN (08:45)
[2017-06-18] MEDS ORDERED: EpHEDrine SULFATE INJ 50 MG/ML AMP IV PRN (08:45)
[2017-06-18] MEDS ORDERED: LABETALOL HCL IV 5 MG/ML 20ML IV PRN (08:45)
[2017-06-18] MEDS ORDERED: ATROPINE SULFATE 0.1 MG/ML 5ML SYR IV PRN (08:45)
[2017-06-18] MEDS ORDERED: MEPERIDINE HCL 25 MG/ML CARP IV PRN (08:45)
[2017-06-18] MEDS ORDERED: SODIUM CHLORIDE 0.9% 1000ML 1,000 ML IV SCH (09:06)
[2017-06-18] MEDS ORDERED: OXYC-57 PO (09:11)
[2017-06-18] MEDS ORDERED: OXYCODONE/ACETAMINOPHEN 5-325 TAB PO PRN (09:15)
--- NOTE | 2017-06-18 09:15 | Discharge Instructions ---
Discharge Instructions Date of Service Jun 18, 2017. Admission Reason for Admission: Tibia/Fibula Fracture Discharge Discharge Diagnosis / Problem: Right medial malleolus fracture, lateral tibia plateau fracture Discharge Goals Goal(s): Improve function, Therapeutic intervention Activity Recommendations Activity Limitations: per Instructions/Follow-up section Weightbearing Status: Right non-weightbearing . Instructions / Follow-Up Instructions / Follow-Up MEDICATIONS: * Resume previous medications unless instructed otherwise by your surgeon. * Always take pain medication on a full stomach or with food to avoid upset stomach. * Do not drink alcohol or drive while taking narcotics. * Tylenol may be taken if narcotic not needed. Begin Pradaxa again tomorrow 06/19/17 SPECIAL CARE INSTRUCTIONS: __ None _x_ Keep extremity elevated and iced x 48 hours; apply ice 20-30 minutes 8-10 times/day. May remove at night. _x_ Walker/ wheelchair __ May discard when able _x_ Brace/Post-op shoe (No knee Range of motion yet. Keep knee immobilizer on) _x_ 24 hrs/day __ Remove at night _x_ Dressing _x_ Maintain until seen in office, may shower with plastic over site __ Remove dressings in 24-48 hours and then may shower __ Cover incisions with band-aids after showering __ Do not remove steri-strips Call physician if chills or temperature rises above 102 degrees or pain unrelieved by prescribed pain medications. Office [phone] follow up in 2 weeks Current Hospital Diet Patient's current hospital diet: Diabetes Type 2 Diet Discharge Diet Recommended Diet: Regular Diet Procedures Procedures Performed: Right Ankle Open Reduction Internal Fixation with Right Knee Aspiration Pending Studies Studies pending at discharge: no Laboratory Results Hemoglobin A1c Test 06/17/17 13:35 Range/Units Estimated Average Glucose 171 mg/dl Hemoglobin A1c 7.6 H 4.5-5.6 % Medical Emergencies . Who to Call and When: Medical Emergencies: If at any time you feel your situation is an emergency, please call 911 immediately. . Non-Emergent Contact Non-Emergency issues call your: Surgeon . "Provider Documentation" section prepared by Gonzalo Reyna. . VTE Core Measure Inpt VTE Proph given/why not?: Other Anticoagulation (pradaxa ), T.E.D. Stockings, Contraindicated
[2017-06-18] MEDS ORDERED: CEFAZOLIN SOD 1000MG/55 ML D5W IV ONE (09:22)
[2017-06-18 09:30] LABS: HEMATOCRIT 43.1 % (42-52); MEAN CELL VOLUME 95.8 fL (80-100); MEAN CORPUSCULAR HEMOGLOBIN 31.3 pg (25-34); MEAN CORPUSCULAR HGB CONC 32.7 g/dl (32-36); MEAN PLATELET VOLUME 9.8 fL (7.4-10.4); PLATELET COUNT 214 K/uL (130-400); WHITE BLOOD COUNT 11.69 K/uL (4.8-10.8)
--- NOTE | 2017-06-18 09:36 | DIAGNOSTIC IMAGING REPORT ---
R ANKLE MIN 3 VIEWS ROUTINE CLINICAL HISTORY: RIGHT ANKLE ORIF COMPARISON STUDY: Right ankle 06/17/2017. FINDINGS: Total fluoroscopy time was 14.9 seconds. 3 fluoroscopic spot images of the right ankle. There are 2 screws transfixing the medial malleolus fracture. The hardware appears intact. The alignment appears anatomic. IMPRESSION: Fluoroscopy provided for internal fixation of a right ankle fracture. Electronically signed by: Nomi Monroy M.D. 06/18/2017 9:35 AM Dictated Date/Time: 06/18/2017 9:34 AM
--- NOTE | 2017-06-18 09:56 | [facility] Post Operative Brief Note ---
Immediate Operative Summary Operative Date Jun 18, 2017. Pre-Operative Diagnosis Right Displaced Medial Malleolus Fracture and Right Tibial Plateau Fracture with Knee Joint Effusion Post-Operative Diagnosis Same as preop Procedure(s) Performed Right Ankle Open Reduction Internal Fixation with Right Knee Aspiration Surgeon Dr. Thorne Food Clerk Surgeon(s) Chidi Reyna PA-C Estimated Blood Loss 20 ml Findings Ankle fracture + Tibial Plateau Fracture Fluids (cc crystalloids) 1200 cc Specimens None per Surgeon Anesthesia General Complication(s) None Disposition Recovery Room / PACU
[2017-06-18 09:58] LABS: BUN/CREATININE RATIO 17.3 (10-20); CALCIUM 8.9 mg/dl (8.5-10.1); CREATININE 0.95 mg/dl (0.60-1.40); POTASSIUM 4.1 mmol/L (3.5-5.1)
[2017-06-18] MEDS: PANTOprazole SOD 40 MG TAB PO SCH (10:14)
[2017-06-18] MEDS: LOSARTAN POTASSIUM 25 MG TAB PO SCH (10:15)
[2017-06-18] MEDS: ATORVASTATIN 40 MG TAB PO SCH (10:15)
[2017-06-18] MEDS: ESCITALOPRAM OXALATE 20 MG TAB PO SCH (10:15)
--- NOTE | 2017-06-18 10:23 | Anesthesiology Progress Note ---
Anesthesia Post Op Note Date & Time Jun 18, 2017 at 10:22 Vital Signs Pain Intensity: 0 Vital Signs Past 12 Hours Date Time Temp Pulse Resp B/P (MAP) Pulse Ox O2 Delivery O2 Flow Rate FiO2 06/18/17 09:55 60 14 144/55 92 Nasal Cannula 2 06/18/17 09:45 36.8 60 17 145/58 90 Nasal Cannula 2 06/18/17 09:35 60 17 148/61 91 Nasal Cannula 2 06/18/17 09:25 60 22 150/61 92 Oxymask 10 06/18/17 09:15 60 15 144/58 94 Oxymask 10 06/18/17 09:09 36.7 68 13 155/73 94 Oxymask 10 06/18/17 06:35 36.9 63 16 160/71 (100) 95 Room Air 06/17/17 23:20 Room Air 06/17/17 23:00 37.0 66 16 151/73 (99) 93 Room Air Notes Mental Status: alert / awake / arousable, participated in evaluation Pt Amnestic to Procedure: Yes Nausea / Vomiting: adequately controlled Pain: adequately controlled Airway Patency, RR, SpO2: stable & adequate BP & HR: stable & adequate Hydration State: stable & adequate Anesthetic Complications: no major complications apparent
--- NOTE | 2017-06-18 10:55 | Progress Note ---
Subjective Date of Service: Jun 18, 2017. Subjective Pt evaluation today including: conversation w/ patient, conversation w/ family , physical exam, chart review, lab review, review of studies, conversation w/ audit consultant, review of inpatient medication list Doing okay, right ankle in dressing and ice, No fever or chill, Problem List Medical Problems: (1) Cellulitis Status: Acute (2) Fall Status: Acute (3) Tibia/fibula fracture Status: Acute Review of Systems Constitutional: No fever, No chills, No sweats, No weight loss, No weakness, No fatigue, No problem reported Eyes: No worsening of vision, No eye pain, No redness, No discharge, No diplopia ENT: No hearing loss, No unusual epistaxis, No nasal symptoms, No sore throat, No tinnitus, No dental problems, No trouble swallowing Respiratory: No cough, No sputum, No wheezing, No shortness of breath, No dyspnea on exertion, No dyspnea at rest, No hemoptysis Cardiac: No chest pain, No orthopnea, No PND, No edema, No claudication, No palpitations Abdomen: No pain, No nausea, No vomiting, No diarrhea, No constipation Musculoskeletal: + joint pain, No muscle pain, No swelling, No calf pain Male : No dysuria, No urinary frequency, No incontinence, No nocturia more than once/night, No slowing stream, No hematuria Neurologic: No memory loss, No paralysis, No weakness, No numbness/tingling, No vertigo, No balance problems Psychiatric: No depression symptoms, No anhedonism, No anxiety, No insomnia, No substance abuse Heme: No abnormal bleeding/bruising, No clotting problems, No swollen lymph nodes, No night sweats Endo: No fatigue, No excessive thirst, No excessive urination Skin: No rash, No itch, No new/changing skin lesions, No color change, No bleeding Objective Vital Signs Date Time Temp Pulse Resp B/P (MAP) Pulse Ox O2 Delivery O2 Flow Rate FiO2 06/18/17 10:10 Room Air 06/18/17 10:10 36.7 62 18 139/70 (93) 92 Room Air 06/18/17 10:10 92 Room Air 06/18/17 09:55 60 14 144/55 92 Nasal Cannula 2 06/18/17 09:45 36.8 60 17 145/58 90 Nasal Cannula 2 06/18/17 09:35 60 17 148/61 91 Nasal Cannula 2 06/18/17 09:25 60 22 150/61 92 Oxymask 10 06/18/17 09:15 60 15 144/58 94 Oxymask 10 06/18/17 09:09 36.7 68 13 155/73 94 Oxymask 10 06/18/17 06:35 36.9 63 16 160/71 (100) 95 Room Air 06/17/17 23:20 Room Air 06/17/17 23:00 37.0 66 16 151/73 (99) 93 Room Air 06/17/17 16:00 Room Air 06/17/17 16:00 36.7 76 16 134/74 (94) 95 Room Air 06/17/17 15:48 62 16 140/64 96 06/17/17 14:40 96 Room Air 06/17/17 14:19 63 16 145/73 96 Room Air 06/17/17 12:03 60 18 157/78 96 Room Air Physical Exam General Appearance: WD/WN, no apparent distress Eyes: normal inspection, PERRL, EOMI, sclerae normal ENT: normal ENT inspection, hearing grossly normal, pharynx normal Neck: supple, no adenopathy, thyroid normal, no JVD, no carotid bruits, trachea midline Respiratory/Chest: chest non-tender, lungs clear, normal breath sounds, no respiratory distress, no accessory muscle use Cardiovascular: regular rate, rhythm, no edema, no gallop, no JVD, no murmur Abdomen: normal bowel sounds, non tender, soft, no organomegaly, no pulsatile mass Extremities: normal inspection, no pedal edema, no calf tenderness, normal capillary refill, pelvis stable, + pertinent finding (right ankle in dress) 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, no motor/sensory deficits, alert, normal mood/affect, oriented x 3, + abnormal cerebellar tests Skin: normal color, warm/dry, no rash Lymphatic: no adenopathy Laboratory Results Last 24 Hours Test 06/17/17 13:35 06/17/17 15:24 06/18/17 09:10 06/18/17 09:23 Sodium Level 140 mmol/L 137 mmol/L Potassium Level 4.1 mmol/L 4.1 mmol/L Chloride Level 106 mmol/L 104 mmol/L Carbon Dioxide Level 29 mmol/L 24 mmol/L Anion Gap 4.0 mmol/L 9.0 mmol/L Blood Urea Nitrogen 15 mg/dl 16 mg/dl Creatinine 0.96 mg/dl 0.95 mg/dl Est Creatinine Clear Calc Drug Dose 67.1 ml/min 67.8 ml/min Estimated GFR () 86.8 87.9 Estimated GFR (Non- 74.9 75.8 BUN/Creatinine Ratio 15.6 17.3 Random Glucose 112 mg/dl 153 mg/dl Estimated Average Glucose 171 mg/dl Hemoglobin A1c 7.6 % Calcium Level 9.6 mg/dl 8.9 mg/dl Total Bilirubin 1.6 mg/dl Aspartate Amino Transf (AST/SGOT) 22 U/L Alanine Aminotransferase (ALT/SGPT) 35 U/L Alkaline Phosphatase 81 U/L Total Protein 7.6 gm/dl Albumin 3.9 gm/dl Globulin 3.7 gm/dl Albumin/Globulin Ratio 1.1 White Blood Count 11.09 K/uL 11.69 K/uL Red Blood Count 4.59 M/uL 4.50 M/uL Hemoglobin 15.1 g/dL 14.1 g/dL Hematocrit 43.3 % 43.1 % Mean Corpuscular Volume 94.3 fL 95.8 fL Mean Corpuscular Hemoglobin 32.9 pg 31.3 pg Mean Corpuscular Hemoglobin Concent 34.9 g/dl 32.7 g/dl Platelet Count 241 K/uL 214 K/uL Mean Platelet Volume 9.8 fL 9.8 fL Neutrophils (%) (Auto) 63.7 % Lymphocytes (%) (Auto) 18.6 % Monocytes (%) (Auto) 15.8 % Eosinophils (%) (Auto) 1.2 % Basophils (%) (Auto) 0.3 % Neutrophils # (Auto) 7.08 K/uL Lymphocytes # (Auto) 2.06 K/uL Monocytes # (Auto) 1.75 K/uL Eosinophils # (Auto) 0.13 K/uL Basophils # (Auto) 0.03 K/uL RDW Standard Deviation 51.5 fL 53.8 fL RDW Coefficient of Variation 15.1 % 15.3 % Immature Granulocyte % (Auto) 0.4 % Immature Granulocyte # (Auto) 0.04 K/uL Bedside Glucose 143 mg/dl Assessment and Plan 77 y/o male, with PMHx of IDDM, HLD, HTN, a.fib, s/p pacer due to heart block, BPH, and GERD, admitted on 06/17/2017 because of worsening R foot discomfort. R tibia/fibula fracture:, s/p Right Ankle Open Reduction Internal Fixation with Right Knee Aspiration, Per recommend from surgeon, Right non-weightbearing Restart ASA and Pradaxa preop Follow up with orthopedic surgeon as instructed A.fib, s/p pacer due to heart block- follows w/ Dr. Martin: Uncontrolled IDDM- HgbA1c 7.6% on 06/17/17: May use own pump- bringing in replacement supplies for tomorrow HLD: HTN: Anxiety: The above condition Stable continue home medication Code Status: LEVEL I, FULL Dispo: From home, lives w/ - social work lecturer consulted Will talk to surgeon for the discharge plan Continued [facility] stay due to: multiple IV medications needed
--- NOTE | 2017-06-18 11:02 | OPERATIVE REPORT ---
DATE OF OPERATION: 06/18/2017 PREOPERATIVE DIAGNOSES: 1. Right displaced medial malleolus fracture. 2. Right nondisplaced tibial plateau fracture with hemarthrosis. POSTOPERATIVE DIAGNOSIS: Same. PROCEDURES PERFORMED: 1. ORIF of right displaced medial malleolus fracture. 2. Right knee aspiration. SURGEON: Ethan Thorne M.D. FRAME POLISHER: Gonzalo Reyna PA-C. ESTIMATED BLOOD LOSS: 20 mL. ANESTHESIA: General. SPECIMENS: None. OPERATIVE INDICATIONS: The patient is a 77-year-old male with a host of medical problems including atrial fibrillation as well as diabetes who injured his ankle 2 days ago when he misstepped off a ladder. He walked around on this for about a day. He developed increased pain and discomfort and presented to the Emergency Room. In the Emergency Room, x-rays revealed a markedly displaced medial malleolus fracture. There is a small posterior malleolus fracture. No detectable tibial fracture. The patient is indicated for surgery for his ankle fracture. The patient also has significant knee effusion. X-ray was equivocal. We did get a CT scan which shows a nondisplaced posterolateral tibial plateau fracture. He had a very tense effusion due to his anticoagulation and he elected to proceed with aspiration at the same time. OPERATIVE IMPLANTS: Operative implants consisted of a Synthes 4.0 long thread partially threaded cannulated screws x2 with washers x2. OPERATIVE PROCEDURE: The patient was taken to the operating room, identified and placed on the operating table in supine position. All contact areas were appropriately padded. IV antibiotics were provided by anesthesia team. A general anesthetic was implemented by the anesthesia team as the patient is on anticoagulation. A right thigh tourniquet was then placed. The right lower extremity splint was removed. The right leg was then scrubbed with Hibiclens and then prepped with ChloraPrep and draped in the usual sterile fashion. I first brought x-ray in. I stressed the ankle and there was no real shifting of the mortise. The medial malleolus was markedly displaced and rotated. However, the mortise was stable. We then elevated the leg and exsanguinated the leg. The tourniquet was placed at 300 mmHg. A medial approach to the medial malleolus was then performed through a curvilinear incision centered right over the fracture site. The saphenous vein was retracted anteriorly. The fracture was easily visualized. I irrigated the wound extensively and got rid of the clot at the fracture site. The fracture was anatomically reduced and fixed with 2 wires from the 4.0 cannulated screw set. I then measured. We then checked the location and verified appropriate position. I then placed two 4.0 long thread cannulated screws over the wires with washers. This provided excellent fixation of the medial malleolus piece. X-ray was brought in. All hardware was appropriately positioned. I irrigated the wound extensively. I did inject locally with 20 mL of 0.5% Marcaine with epinephrine. The tourniquet was then let down for a tourniquet time of 21 minutes. Hemostasis was assured with use of electrocautery. The wound was once again irrigated. I did have to extend the incision a little bit proximally in order to get adequate hemostasis as there was a venous bleeder. The subcutaneous tissues were then closed with 2-0 Dexon suture in a buried interrupted fashion. The skin was closed with 4-0 nylon suture in a simple fashion. The leg was then cleaned and dried and a sterile dressing of Xeroform, 4 x 4's, sterile cast padding and a well-padded posterior and stirrup splint were applied. Attention was then drawn to the knee. The knee was then cleaned with alcohol. I then aspirated the knee for about 50 mL of bloody fluid. I then applied a 4 x 4 to the aspiration site followed by an Shree bandage. The patient was then placed in knee immobilizer. The patient was then brought out of general anesthesia and transferred to the recovery room in stable condition. The patient tolerated the procedure well with no complications. All needle and sponge counts were correct at the end of the operation. I attest to the content of the Intraoperative Record and any orders documented therein. Any exception s are noted below.
[2017-06-18] MEDS ORDERED: NURSING VERBAL MED ORDER ONE ×2 (14:00→14:15)
[2017-06-18] MEDS: ASPIRIN 81 MG ECTAB PO SCH (16:15)
[2017-06-18] MEDS ORDERED: CEFAZOLIN IV 1,000 MG in DEXTROSE 5% 50ML 50 ML IV ONE (18:00)
[2017-06-18] MEDS: TRAZODONE HCL 50 MG TAB PO SCH (20:37)
[2017-06-18] MEDS: MoRPHine SULFATE 2 MG/ML CARP IV PRN (23:10)
[2017-06-19 04:00] VITALS: BP 150/76; PULSE 64; TEMP 37.1; O2SAT 96
[2017-06-19] MEDS: MoRPHine SULFATE 2 MG/ML CARP IV PRN ×3 (04:22→17:29)
[2017-06-19 06:26] LABS: HEMATOCRIT 41.4 % (42-52); MEAN CELL VOLUME 94.3 fL (80-100); MEAN CORPUSCULAR HEMOGLOBIN 32.6 pg (25-34); MEAN CORPUSCULAR HGB CONC 34.5 g/dl (32-36); MEAN PLATELET VOLUME 10.3 fL (7.4-10.4); PLATELET COUNT 228 K/uL (130-400); RED BLOOD COUNT 4.39 M/uL (4.7-6.1); WHITE BLOOD COUNT 10.43 K/uL (4.8-10.8)
[2017-06-19 06:49] LABS: CREATININE 0.99 mg/dl (0.60-1.40); POTASSIUM 3.7 mmol/L (3.5-5.1)
[2017-06-19 07:23] VITALS: BP 161/70; PULSE 62; TEMP 37.1; O2SAT 94
--- NOTE | 2017-06-19 07:50 | Orthopedic Progress Note ---
Orthopedic Progress Note Date of Service Jun 19, 2017. Subjective Additional Notes: POD #1 from ORIF right medial malleolus fx and right knee aspiration. He has had some ankle pain. No other complaints at this time. Objective N/V intact, splint C/D/I, A&O x3, toes mobile knee immobilizer on right leg Date Time Temp Pulse Resp B/P (MAP) Pulse Ox O2 Delivery O2 Flow Rate FiO2 06/19/17 07:23 37.1 62 17 161/70 (100) 94 Room Air 06/19/17 04:00 37.1 64 16 150/76 (100) 96 Room Air 06/18/17 23:30 Room Air 06/18/17 22:58 36.7 64 16 151/76 (101) 93 Room Air 06/18/17 19:07 37.0 64 16 165/67 (99) 94 06/18/17 16:20 Room Air 06/18/17 16:20 147/70 (95) 06/18/17 16:10 36.9 64 16 170/73 (105) 94 Room Air 06/18/17 15:53 62 94 06/18/17 13:10 36.9 60 17 159/77 (104) 93 06/18/17 12:11 36.5 62 17 137/68 (91) 93 Room Air 06/18/17 11:13 36.9 66 17 143/65 (91) 92 Room Air 06/18/17 10:40 36.9 60 18 146/67 (93) 92 Room Air 06/18/17 10:10 Room Air 06/18/17 10:10 36.7 62 18 139/70 (93) 92 Room Air 06/18/17 10:10 92 Room Air 06/18/17 09:55 60 14 144/55 92 Nasal Cannula 2 06/18/17 09:45 36.8 60 17 145/58 90 Nasal Cannula 2 06/18/17 09:35 60 17 148/61 91 Nasal Cannula 2 06/18/17 09:25 60 22 150/61 92 Oxymask 10 06/18/17 09:15 60 15 144/58 94 Oxymask 10 06/18/17 09:09 36.7 68 13 155/73 94 Oxymask 10 Laboratory Results 24 Hours: Test 06/18/17 09:23 06/19/17 06:06 Hematocrit 43.1 % 41.4 % Hemoglobin 14.1 g/dL 14.3 g/dL Assessment & Plan Assessment: POD #1 from ORIF right medial malleolus fx and right knee aspiration for a tibial plateau fx Plan: Continue medical management per hospitalist service. Discharge Planning Discharge Planning: other (continue discharge planning. Pt is requesting rehab stay ) Pain Management: other (pain is reasonably controlled. ) DVT Prophylaxis: TEDs, SCDs, other (pradaxa) Therapy: Physical Therapy (for transfer instructions. NWB RLE. No knee ROM, continue knee immbolizer to right leg. ) Discharge Planning Notes: He should follow up in clinic with Dr. Thorne in approx 2 weeks.
--- NOTE | 2017-06-19 08:10 | Anesthesiology Progress Note ---
Anesthesia Post Op Note Date & Time Jun 19, 2017 at 08:10 Vital Signs Pain Intensity: 7.5 Vital Signs Past 12 Hours Date Time Temp Pulse Resp B/P (MAP) Pulse Ox O2 Delivery O2 Flow Rate FiO2 06/19/17 07:23 37.1 62 17 161/70 (100) 94 Room Air 06/19/17 04:00 37.1 64 16 150/76 (100) 96 Room Air 06/18/17 23:30 Room Air 06/18/17 22:58 36.7 64 16 151/76 (101) 93 Room Air Notes Mental Status: alert / awake / arousable, participated in evaluation Pt Amnestic to Procedure: Yes Nausea / Vomiting: adequately controlled Pain: adequately controlled Airway Patency, RR, SpO2: stable & adequate BP & HR: stable & adequate Hydration State: stable & adequate Anesthetic Complications: no major complications apparent
[2017-06-19] MEDS ORDERED: DABIGATRAN ELEXILATE 75 MG CAP PO SCH (09:00)
[2017-06-19] MEDS ORDERED: CHOLECALCIFEROL 1000 INTER.UNIT TAB PO SCH (09:00)
[2017-06-19] MEDS: PANTOprazole SOD 40 MG TAB PO SCH (09:11)
[2017-06-19] MEDS: LOSARTAN POTASSIUM 25 MG TAB PO SCH (09:12)
[2017-06-19] MEDS: ASPIRIN 81 MG ECTAB PO SCH (09:13)
[2017-06-19] MEDS: ESCITALOPRAM OXALATE 20 MG TAB PO SCH (09:15)
[2017-06-19] MEDS: ATORVASTATIN 40 MG TAB PO SCH (09:15)
[2017-06-19 11:38] VITALS: BP 151/71; PULSE 64; TEMP 37.1; O2SAT 93
--- NOTE | 2017-06-19 13:01 | Discharge Instructions ---
Discharge Instructions Date of Service Jun 19, 2017. Admission Reason for Admission: Tibia/Fibula Fracture Discharge Discharge Diagnosis / Problem: ORIF right medial malleolus fracture and right knee aspiration for a tibia Discharge Goals Goal(s): Decrease discomfort, Improve function, Increase independence, Improve disease control, Improve nutritional status, Learn about illness, Diagnostic testing, Therapeutic intervention, Prevent Disease Progression, Specific goals Activity Recommendations Activity Limitations: as noted below . Instructions / Follow-Up Instructions / Follow-Up You are POD #1 from ORIF right medial malleolus fracture and right knee aspiration for a tibial plateau fracture You're DVT prophylaxis is covered by taking Pradaxa Continue Physical Therapy (for transfer instructions. NWB RLE. No knee ROM, continue knee immbolizer to right leg. ) follow up in clinic with Dr. Thorne in approx 2 weeks as instructed you have A.fib, s/p pacer due to heart block- follows w/ Dr. Martin: you have Uncontrolled IDDM- HgbA1c 7.6% on 06/17/17: - you need to follow up with your primary care physician in 1 week, - take medication as instructed, never overdose or any misuse, or take with alcohol, because misuse of medicine may cause organ damage or , call your primary care physician if have questions of medicaitons. - call your primary care physician OR go to local emergency room if has any fever/chill, chest pain, shortness of breathing, nausea/vomiting/abdominal pain , facial droop/slurry speech/local weakness, or if has any questions. - fall precaution - diet as instructed - you need to follow up with your subspecialist - you should understand that it is important to follow up the above instruction , and "not following the above instruction" may cause delayed or missed care of your medical conditions which may cause permanent organ damage and even . Current Hospital Diet Patient's current hospital diet: Diabetes Type 2 Diet Discharge Diet Recommended Diet: Low Sodium Diet (2gm Na) Procedures Procedures Performed: Right Ankle Open Reduction Internal Fixation with Right Knee Aspiration Pending Studies Studies pending at discharge: no Laboratory Results Hemoglobin A1c Test 06/17/17 13:35 Range/Units Estimated Average Glucose 171 mg/dl Hemoglobin A1c 7.6 H 4.5-5.6 % Medical Emergencies . Who to Call and When: Medical Emergencies: If at any time you feel your situation is an emergency, please call 911 immediately. . Non-Emergent Contact Non-Emergency issues call your: Primary Care Provider, Tool Grinder Operator Surface Call Non-Emergent contact if: you have a fever . . "Provider Documentation" section prepared by Rigo Branham. . VTE Core Measure Inpt VTE Proph given/why not?: Other Anticoagulation, SCD's
[2017-06-19 13:24] VITALS: BP 151/71; PULSE 64; TEMP 37.1; O2SAT 93
--- NOTE | 2017-06-19 17:10 | Discharge Summary ---
Discharge Summary Date of Service Jun 19, 2017. Discharge Summary Admission Date: Jun 17, 2017 at 15:02 Discharge Date: Jun 18, 2017 Discharge Disposition: Rehab Principal Diagnosis: R tibia/fibula fracture:, Immunizations: Have You Had Influenza Vaccine: Yes Influenza Vaccine Date: Jun 08, 2015 History of Tetanus Vaccine?: Unknown History of Pneumococcal: Yes Pneumococcal Date: Sep 08, 2009 History of Hepatitis B Vaccine: Unknown Procedures: s/p Right Ankle Open Reduction Internal Fixation with Right Knee Aspiration, Consultations: Orthopedic Medication Reconciliation New Medications: Oxycodone/Acetaminophen 5MG/325MG (Percocet 5MG/325MG) Tab 1-2 TABLETS PO Q6 PRN for Pain, #40 TAB Continued Medications: Aspirin (Aspirin Ec) 81 Mg Tab 81 MG PO QAM Atorvastatin (Lipitor) 80 Mg Tab 80 MG PO QAM Cholecalciferol (D 1000) 1,000 Unit Cap 4000 UNITS PO DAILY Clobetasol Propionate (Clobetasol Propionate Cream 0.05%) 90 Appln/30 Gm Cr 1 APPLN EXT BID PRN for Itching, TUBE Dabigatran Etexilate Mesylate (Pradaxa) 150 Mg Cap 150 MG PO BID, CAP Escitalopram Oxalate (Escitalopram Oxalate) 20 Mg Tab 20 MG PO DAILY Folic Acid (Folvite) 1 Mg Tab 2 MG PO QAM, TAB Insulin Human Lispro (Insulin Humalog Pump ) Pump 1 EA N/A UD, EA Losartan Potassium (Losartan Potassium) 25 Mg Tab 25 MG PO DAILY Melatonin-Pyridoxine (Melatonin) 1 Tab Tab 1 TAB PO HS Moxifloxacin Hcl (Avelox) 400 Mg Tab 1 TAB PO DIRECTED for 7 Days, TAB TAKE IF FEVER, THEN F/O WITH PHYSICIAN Omeprazole (Prilosec) 20 Mg Capcr 20 MG PO QAM, CAP Trazodone Hcl (Trazodone) 50 Mg Tab 25 MG PO HS Discharge Exam Doing well, pleasant, no complaining, pain well controlled Review of Systems: Constitutional: No fever, No chills, No sweats, No weight loss, No weakness , No fatigue, No problem reported Eyes: No worsening of vision, No eye pain, No redness, No discharge, No diplopia, No problem reported Respiratory: No cough, No sputum, No wheezing, No shortness of breath, No dyspnea on exertion, No dyspnea at rest, No hemoptysis, No problem reported Cardiovascular: No chest pain, No orthopnea, No PND, No edema, No claudication, No palpitations, No problem reported Abdomen: No pain, No nausea, No vomiting, No diarrhea, No constipation, No GI bleeding, No problem reported Musculoskeletal: No joint pain, No muscle pain, No swelling, No calf pain, No problem reported Genitourinary - Male: No hematuria, No dysuria, No urinary frequency, No urinary urgency, No urinary hesitancy, No urinary retention, No urinary incontinence, No penile discharge, No lesions, No impotence, No problem reported Neurologic: No memory loss, No paralysis, No weakness, No numbness/tingling , No vertigo, No balance problems, No problem reported Psychiatric: No depression symptoms, No anhedonism, No anxiety, No insomnia , No substance abuse, No problem reported Hematologic / Lymphatic: No abnormal bleeding/bruising, No clotting problems , No swollen lymph nodes, No night sweats, No problem reported Integumentary: No rash, No itch, No new/changing skin lesions, No color change, No bleeding, No problem reported Physical Exam: General Appearance: WD/WN Eyes: normal inspection, PERRL, EOMI ENT: normal ENT inspection, hearing grossly normal, pharynx normal Neck: supple, no adenopathy, thyroid normal Respiratory/Chest: chest non-tender, normal breath sounds, no respiratory distress, + decreased breath sounds Cardiovascular: regular rate, rhythm, no edema, no gallop Abdomen / GI: normal bowel sounds, non tender Extremities: normal inspection, no calf tenderness, normal capillary refill , no pedal edema 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 R tibia/fibula fracture:, s/p Right Ankle Open Reduction Internal Fixation with Right Knee Aspiration, Per recommend from surgeon, Right non-weightbearing Restart ASA and Pradaxa preop Follow up with orthopedic surgeon as instructed A.fib, s/p pacer due to heart block- follows w/ Dr. 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 NWB RLE. No knee ROM, continue knee immbolizer to right leg. ) follow up in clinic with Dr. Thorne in approx 2 weeks as instructed you have A.fib, s/p pacer due to heart block- follows w/ Dr. Martin: you have Uncontrolled IDDM- HgbA1c 7.6% on 06/17/17: - you need to follow up with your primary care physician in 1 week, - take medication as instructed, never overdose or any misuse, or take with alcohol, because misuse of medicine may cause organ damage or , call your primary care physician if have questions of medicaitons. - call your primary care physician OR go to local emergency room if has any fever/chill, chest pain, shortness of breathing, nausea/vomiting/abdominal pain , facial droop/slurry speech/local weakness, or if has any questions. - fall precaution - diet as instructed - you need to follow up with your subspecialist - you should understand that it is important to follow up the above instruction , and "not following the above instruction" may cause delayed or missed care of your medical conditions which may cause permanent organ damage and even . Total Time Spent: Less than 30 minutes This includes examination of the patient, discharge planning, medication reconciliation, and communication with other providers. Discharge Instructions Please refer to the electronic Patient Visit Report (Discharge Instructions) for additional information. Additional Copies To Ethan Thorne M.D.; Raleigh Morin Jr,D.O.; Mack Martin M.D.
== END 2017-06-19 18:21 | DRG 493 ==
LOC: C.EDB 09:39 → C.MSW 15:02 → ENRESERV 15:24
PROVIDERS: ADMIT Hospitalist; ATTEND Hospitalist
PROC: 0QSG04Z Reposition Right Tibia with Internal Fixation Device, Open Approach (ICD-10-PCS; principal; 2017-06-18 07:45)
PROC: 0S9C3ZZ Drainage of Right Knee Joint, Percutaneous Approach (ICD-10-PCS; principal; 2017-06-18 07:45)
DX: S82.51XA Displaced fracture of medial malleolus of right tibia, initial encounter for closed fracture (principal); S82.144A Nondisplaced bicondylar fracture of right tibia, initial encounter for closed fracture; M25.061 Hemarthrosis, right knee; W11.XXXA Fall on and from ladder, initial encounter; Y93.39 Activity, other involving climbing, rappelling and jumping off; I48.91 Unspecified atrial fibrillation; I10 Essential (primary) hypertension; E11.9 Type 2 diabetes mellitus without complications; E78.5 Hyperlipidemia, unspecified; F41.9 Anxiety disorder, unspecified; K21.9 Gastro-esophageal reflux disease without esophagitis; Z95.0 Presence of cardiac pacemaker; Z90.81 Acquired absence of spleen; Z79.01 Long term (current) use of anticoagulants; Z79.2 Long term (current) use of antibiotics; Z79.4 Long term (current) use of insulin; Z79.82 Long term (current) use of aspirin; Z79.899 Other long term (current) drug therapy

== ENCOUNTER → 2017-07-07 | Outpatient (CLI) | payer OTHER ==
[~2017-07-07] MED LIST changes: -ALPR-411 PO; -CHOL100010 PO; +CHOL100041 PO; +CLBCRM30 EXT; -CLOB-65 TOP; +CZR25 PO; -ESCI10TA17 PO; -LOSA100T2 PO; +LXP/20 PO; +MELA1TAB3 PO; +OXYC-57 PO; -Prednisone PO; -SELENIMIN PO
[2017-07-07 14:30] LABS: ESTIMATED AVERAGE GLUCOSE 151 mg/dl; HA1C FLAG Normal (Normal)
[2017-07-07 14:48] LABS: BLOOD UREA NITROGEN 18 mg/dl (7-18); BUN/CREATININE RATIO 19.6 (10-20); CALCIUM 9.6 mg/dl (8.5-10.1); CARBON DIOXIDE 28 mmol/L (21-32); CHLORIDE 100 mmol/L (98-107); CREATININE 0.93 mg/dl (0.60-1.40); GLUCOSE 148 mg/dl (70-99); POTASSIUM 3.9 mmol/L (3.5-5.1); SODIUM 136 mmol/L (136-145)
[2017-07-07 14:52] LABS: ALB/GLOB RATIO 0.9 (0.9-2); ALKALINE PHOSPHATASE 120 U/L (45-117); ALT/SGPT 41 U/L (12-78); AST/SGOT 32 U/L (15-37); CHOLESTEROL 124 mg/dl (0-200); CHOLESTEROL/HDL RATIO 2.6; HDL CHOLESTEROL 48 mg/dl; LDL CHOLESTEROL CALCULATED 55 mg/dl; TRIGLYCERIDES 104 mg/dl (0-150); VERY LOW DENSITY LIPOPROT CALC 21 mg/dl
[2017-07-07 16:50] LABS: RATIO 34.9 mcg/mg (0-30.0)
== END | disposition home or self-care (01) ==
LOC: C.LAB 13:30
PROVIDERS: ATTEND Physician Assistant
DX: E11.9 Type 2 diabetes mellitus without complications (principal)

== ENCOUNTER → 2017-11-03 | Outpatient (CLI) | payer OTHER ==
[~2017-11-03] MED LIST changes: -FOLI1TAB7 PO; +FOLI1TAB8 PO
[2017-11-03 13:01] LABS: BASO % 0.4 %; BASO ABS # 0.03 K/uL (0-0.2); EOS % 1.6 %; EOS ABS # 0.12 K/uL (0-0.5); HEMATOCRIT 47.8 % (42-52); HEMOGLOBIN 16.4 g/dL (14.0-18.0); IG# 0.03 K/uL (0.00-0.02); LYMPH % 25.3 %; LYMPH ABS # 1.88 K/uL (1.2-3.4); MEAN CELL VOLUME 95.4 fL (80-100); MEAN CORPUSCULAR HEMOGLOBIN 32.7 pg (25-34); MEAN CORPUSCULAR HGB CONC 34.3 g/dl (32-36); MEAN PLATELET VOLUME 10.7 fL (7.4-10.4); MONO % 10.8 %; NEUT % 61.5 %; NEUT ABS # 4.56 K/uL (1.4-6.5); PLATELET COUNT 270 K/uL (130-400); RED CELL DISTRIBUTION WIDTH CV 15.3 % (11.5-14.5); RED CELL DISTRIBUTION WIDTH SD 53.1 fL (36.4-46.3); WHITE BLOOD COUNT 7.42 K/uL (4.8-10.8)
[2017-11-03 14:51] LABS: ALT/SGPT 39 U/L (12-78); AST/SGOT 31 U/L (15-37); BLOOD UREA NITROGEN 17 mg/dl (7-18); CALCIUM 9.4 mg/dl (8.5-10.1); CARBON DIOXIDE 29 mmol/L (21-32); CREATININE 1.01 mg/dl (0.60-1.40); GLUCOSE 163 mg/dl (70-99); POTASSIUM 4.4 mmol/L (3.5-5.1); SODIUM 139 mmol/L (136-145)
== END | disposition home or self-care (01) ==
LOC: C.LAB 11:54
DX: E11.9 Type 2 diabetes mellitus without complications (principal); I10 Essential (primary) hypertension; D75.81 Myelofibrosis

== ENCOUNTER 2023-03-16 07:52 | Observation (INO) ==
--- NOTE | 2023-03-16 08:27 | Emergency Department Note ---
Impression & Plan Elevated troponin, COVID-19, Hypokalemia Admit to the [facility] ED Provider Note NAME: LG SHERIDAN AGE: 82 SEX: M ARRIVES VIA: Walk-In INFORMANT: Patient and his ED PROVIDER(S): Ellie Arreola DO CHIEF COMPLAINT: Cough and shortness of breath PLAN: Disposition: Admit to the [facility] Condition: Guarded MEDICAL DECISION MAKING: This is an 82-year-old male patient with a history of diabetes, heart disease, and splenectomy who recently traveled abroad and tested positive for COVID who presents to the emergency department with cough and shortness of breath. Chest x-ray was unremarkable. Laboratory studies revealed significant hypokalemia with a potassium of 2.9. The patient was started on IV potassium replacement. Patient did have an elevated troponin at 88. He was found to be hyperglycemic with a sugar of 153. There were no acute EKG changes noted on EKG. Patient remains hemodynamically stable. I discussed the case with the [facility] and they will evaluate for further inpatient care. Patient's presentation is most likely secondary to COVID-19. Triage Nursing notes reviewed and agree with them. Additional history obtained from his is at the bedside Vital Signs: reviewed and unremarkable Differential diagnosis: Pneumonia, CHF, pleural effusions ED treatment: Cardiac monitoring Twelve-lead EKG IV potassium replacement Diagnostics interpreted by me: ECG: Paced rhythm at 67 with no obvious signs of ischemia. Cardiac Monitoring: Patient was in a normal sinus rhythm at a rate of 63. Laboratory studies: See below Imaging studies: As per my independent interpretation Portable chest x-ray: Cardiomegaly without evidence of pulmonary pathology HPI: 82/M arrives for evaluation of shortness of breath and cough. Patient recently traveled abroad and returned last night with a cough and shortness of breath. Patient has had a 6-day history of coughing and shortness of breath. He had tested positive for COVID PAST MEDICAL HISTORY:See Below PAST SURGICAL HISTORY:See Below FAMILY HISTORY:See Below SOCIAL HISTORY:See Below HOME MEDICATIONS:See list ALLERGIES:None VITALS:See Below PHYSICAL EXAMINATION: HEENT: Head - normocephalic and atraumatic. Pupils are equal, round, and reactive to light. Extraocular eye muscles are intact, and sclera are anicteric. Nose - moist nasal mucosa without discharge. Mouth - moist buccal mucosa. Oropharynx is nonerythematous and there is no tonsillar exudate or edema noted. Neck: Supple; no JVD or cervical lymphadenopathy Heart: Regular rate and rhythm. There is a normal S1 and S2 with no murmurs, clicks, or gallops appreciated. Lungs: Clear to auscultation bilaterally with no wheezes, rales, or rhonchi. Abdomen: Soft, completely nontender, nondistended, with good bowel sounds. There are no palpable pulsatile masses or hepatosplenomegaly. There is no guarding, rigidity, or rebound noted. Extremities: Trace pedal edema. There are easily palpable peripheral pulses. Skin: warm and dry with good turgor and no rashes. ED COURSE: Times/Reassessments: 805 patient was evaluated in room A-4. A complete history and physical was performed. An order was placed for continuous cardiac monitoring. Patient was in a normal sinus rhythm at a rate of 63. A twelve-lead EKG was obtained as described above. Portable chest x-ray was performed. An IV lock was initiated and labs were drawn as above. Patient was noted to be hypokalemic. He was started on IV potassium replacement. I have personally spent greater than 30 minutes of critical care time in the direct management of this patient. This includes bedside care, interpretation of diagnostic studies, and testing, discussion with consultants, patient, and family members, and other required patient management activities. This 30 minutes is in excess of all separately billable procedures. 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 follows with Dr Martin last check sent over the phone and has checked in office. Type 1 diabetes mellitus with hypoglycemia Vitamin D deficiency Surgical History History of bone marrow biopsy History of cardiac catheterization 2012 History of hernia repair History of splenectomy History of splenectomy History of tonsillectomy and adenoidectomy Family History Mother Hypertension Father Hypertension Brother Prostate cancer Social History Smoking Status: Former smoker Second Hand Exposure: No; Do You Dip or Chew Tobacco: No; Hx Alcohol Use: Yes Alcohol type: hard liquor Alcohol Intake Frequency Comment: Occasional Hx Substance Use: No Preferred Language: Lithuanian Communication Ability: Effective Food And Beverage Checker Required: No Beliefs That Will Affect Care: None Current Living Situation: Spouse Feels Safe at Home: Yes Assistive Devices: Cane and Glasses Allergies Allergies Allergy/AdvReac Type Severity Reaction Status Date / Time No Known Drug Allergies Allergy Verified 01/09/23 10:35 Home Meds Home Medications Medication Instructions Recorded Confirmed aspirin 81 mg tablet,delayed 81 mg PO QAM 07/12/19 03/16/23 release atorvastatin 80 mg tablet (Lipitor) 80 mg PO QPM 07/12/19 03/16/23 bimatoprost 0.01 % eye drops 1 drops ophthalmic (eye) QPM 07/12/19 03/16/23 (Bakari) cholecalciferol (vitamin D3) 125 5,000 units PO DAILY 07/12/19 03/16/23 mcg (5,000 unit) capsule clobetasol 0.05 % topical foam 1 appln topical BID PRN Other 07/12/19 03/16/23 escitalopram oxalate 10 mg tablet 10 mg PO QAM 07/12/19 03/16/23 folic acid 1 mg tablet 2 mg PO DAILY 07/12/19 03/16/23 omeprazole 20 mg capsule,delayed 20 mg PO DAILY PRN gerd 07/12/19 03/16/23 release selenium sulfide 2.25 % shampoo 1 appln topical DAILY 07/12/19 03/16/23 dorzolamide 2 % eye drops 1 drops ophthalmic (eye) BID 03/31/20 03/16/23 trazodone 50 mg tablet 100 mg PO HS 10/11/20 03/16/23 blood sugar diagnostic (Contour 06/11/22 09/26/22 Next Test Strips) amlodipine 5 mg tablet 5 mg PO DAILY 01/09/23 03/16/23 dorzolamide 22.3 mg-timolol 6.8 ophthalmic (eye) 01/09/23 01/09/23 mg/mL eye drops hydrochlorothiazide 25 mg tablet 25 mg PO DAILY 01/09/23 03/16/23 losartan 100 mg tablet 100 mg PO DAILY 01/09/23 03/16/23 mecobalamin (vitamin B12) 2,000 mcg PO DAILY 01/09/23 03/16/23 Previous Rx's Medication Instructions Recorded insulin lispro 100 unit/mL 100 unit continuous subcutaneous 01/11/22 subcutaneous solution (Humalog infusion DAILY via insulin pump 90 U-100 Insulin) days #90 mL flash glucose sensor (FreeStyle #2 ea 05/20/22 Edgar 2 Sensor kit) dabigatran etexilate 150 mg 150 mg PO BID #180 caps 08/29/22 capsule (Pradaxa) Results & Data (ED) Vital Signs Vital Signs - 24 hr 03/16/23 07:58 03/16/23 08:10 03/16/23 08:10 Temperature 36.4 C L Temperature Source Temporal Artery Scan Pulse Rate 75 Pulse Rate [Right Finger] 63 Pulse Rate from SpO2 Sensor Respiratory Rate 18 20 Respiratory Effort / Characteristics Non-Labored Non-Labored Respiratory Depth Normal Normal Blood Pressure 109/64 Blood Pressure [Right Arm] 111/60 Blood Pressure Mean 79 Blood Pressure Mean [Right Arm] 77 Blood Pressure Position Sitting Pulse Oximetry 94 95 95 Oxygen Delivery Method Room Air Room Air Room Air Sepsis Recent Fever Within 48 Hours No Sepsis New/Unexplained Change in Mental Status No Sepsis Action Taken by Nursing No Action Required 03/16/23 08:38 03/16/23 08:40 03/16/23 09:09 Temperature Temperature Source Pulse Rate 69 Pulse Rate [Right Finger] 65 Pulse Rate from SpO2 Sensor Respiratory Rate 20 Respiratory Effort / Characteristics Non-Labored Respiratory Depth Normal Blood Pressure Blood Pressure [Right Arm] 111/61 Blood Pressure Mean Blood Pressure Mean [Right Arm] 77 Blood Pressure Position Pulse Oximetry 96 97 Oxygen Delivery Method Room Air Room Air Sepsis Recent Fever Within 48 Hours Sepsis New/Unexplained Change in Mental Status Sepsis Action Taken by Nursing 03/16/23 08:36 03/16/23 08:36 03/16/23 08:40 Temperature Temperature Source Pulse Rate 76 62 Pulse Rate [Right Finger] Pulse Rate from SpO2 Sensor 76 62 Respiratory Rate 21 21 Respiratory Effort / Characteristics Respiratory Depth Blood Pressure 137/71 Blood Pressure [Right Arm] Blood Pressure Mean 93 Blood Pressure Mean [Right Arm] Blood Pressure Position Pulse Oximetry 95 96 Oxygen Delivery Method Sepsis Recent Fever Within 48 Hours Sepsis New/Unexplained Change in Mental Status Sepsis Action Taken by Nursing 03/16/23 08:50 03/16/23 09:00 03/16/23 09:00 Temperature Temperature Source Pulse Rate 60 60 Pulse Rate [Right Finger] Pulse Rate from SpO2 Sensor 60 60 Respiratory Rate 17 20 Respiratory Effort / Characteristics Respiratory Depth Blood Pressure 111/61 Blood Pressure [Right Arm] Blood Pressure Mean 77 Blood Pressure Mean [Right Arm] Blood Pressure Position Pulse Oximetry 93 96 Oxygen Delivery Method Sepsis Recent Fever Within 48 Hours Sepsis New/Unexplained Change in Mental Status Sepsis Action Taken by Nursing 03/16/23 09:10 03/16/23 09:20 03/16/23 09:30 Temperature Temperature Source Pulse Rate 63 60 Pulse Rate [Right Finger] Pulse Rate from SpO2 Sensor 63 61 Respiratory Rate 23 18 Respiratory Effort / Characteristics Respiratory Depth Blood Pressure 144/69 H Blood Pressure [Right Arm] Blood Pressure Mean 94 Blood Pressure Mean [Right Arm] Blood Pressure Position Pulse Oximetry 94 95 Oxygen Delivery Method Sepsis Recent Fever Within 48 Hours Sepsis New/Unexplained Change in Mental Status Sepsis Action Taken by Nursing 03/16/23 09:30 03/16/23 09:30 03/16/23 09:40 Temperature Temperature Source Pulse Rate 60 60 Pulse Rate [Right Finger] Pulse Rate from SpO2 Sensor 61 60 Respiratory Rate 17 18 Respiratory Effort / Characteristics Respiratory Depth Blood Pressure 144/69 H Blood Pressure [Right Arm] Blood Pressure Mean 94 Blood Pressure Mean [Right Arm] Blood Pressure Position Pulse Oximetry 90 95 Oxygen Delivery Method Sepsis Recent Fever Within 48 Hours Sepsis New/Unexplained Change in Mental Status Sepsis Action Taken by Nursing 03/16/23 09:50 03/16/23 10:09 03/16/23 10:10 Temperature Temperature Source Pulse Rate 60 61 Pulse Rate [Right Finger] Pulse Rate from SpO2 Sensor 60 Respiratory Rate 18 24 Respiratory Effort / Characteristics Respiratory Depth Blood Pressure 138/67 Blood Pressure [Right Arm] Blood Pressure Mean 90 Blood Pressure Mean [Right Arm] Blood Pressure Position Pulse Oximetry 95 Oxygen Delivery Method Sepsis Recent Fever Within 48 Hours Sepsis New/Unexplained Change in Mental Status Sepsis Action Taken by Nursing 03/16/23 10:10 03/16/23 10:20 Temperature Temperature Source Pulse Rate 61 67 Pulse Rate [Right Finger] Pulse Rate from SpO2 Sensor 65 60 Respiratory Rate 20 16 Respiratory Effort / Characteristics Respiratory Depth Blood Pressure Blood Pressure [Right Arm] Blood Pressure Mean Blood Pressure Mean [Right Arm] Blood Pressure Position Pulse Oximetry 98 98 Oxygen Delivery Method Sepsis Recent Fever Within 48 Hours Sepsis New/Unexplained Change in Mental Status Sepsis Action Taken by Nursing Laboratory Data 03/16/23 08:32 03/16/23 08:32 Lab Results 03/16/23 03/16/23 03/16/23 Range/Units 08:32 08:32 08:33 WBC 6.94 (4.8-10.8) K/ul RBC 4.47 L (4.70-6.10) M/uL Hgb 14.3 (14.0-18.0) g/dl Hct 41.4 L (42.0-52.0) % MCV 92.6 (80.0-100.0) fL MCH 32.0 (25.0-34.0) pg MCHC 34.5 (32.0-36.0) g/dL RDW Std Deviation 51.8 H (36.4-46.3) fL RDW Coeff of Lisa 15.3 H (11.5-14.5) % Plt Count 269 (130-400) K/uL MPV 10.6 (9.4-12.4) fL Immature Gran % (Auto) 0.4 % Neut % (Auto) 47.1 % Lymph % (Auto) 27.4 % [place] % (Auto) 22.8 % Eos % (Auto) 1.4 % Baso % (Auto) 0.9 % Neut # (Auto) 3.27 (1.40-6.50) K/uL Lymph # (Auto) 1.90 (1.2-3.4) K/uL [place] # (Auto) 1.58 H (0.11-0.59) K/uL Eos # (Auto) 0.10 (0-0.50) K/uL Baso # (Auto) 0.06 (0-0.2) K/uL Immature Gran # (Auto) 0.03 (0.01-0.20) K/uL Sodium 136 (136-145) mmol/L Potassium 2.9 L (3.5-5.1) mmol/L Chloride 98 (98-107) mmol/L Carbon Dioxide 28 (21-32) mmol/L Anion Gap 10 (3-11) BUN 19 (6-23) mg/dl Creatinine 1.11 (0.6-1.4) mg/dl Est Cr Clr Drug Dosing 54.6 ml/min Est GFR ( Amer) 70.3 ml/min Est GFR (Non-Af Amer) 60.7 ml/min BUN/Creatinine Ratio 17.1 (10-20) Glucose 153 H (70-99(Fasting)) mg/dl POC Glucose (70-99) mg/dl Calcium 9.3 (8.6-10.3) mg/dl Magnesium 2.0 (1.7-2.4) mg/dl Total Bilirubin 0.9 (0.2-1.0) mg/dl AST 42 H (13-39) U/L ALT 24 (7-52) U/L Alkaline Phosphatase 70 (34-104) U/L Troponin I High Sens 88.4 H* (0-20) pg/ml C-Reactive Protein 1.27 H (0-0.5) mg/dl Total Protein 7.0 (6.0-8.3) gm/dl Albumin 3.9 (3.4-5.0) gm/dl Globulin 3.1 (2.5-4.0) gm/dl Albumin/Globulin Ratio 1.3 (0.9-2) Procalcitonin (0-0.5) ng/ml Urine Color Yellow Urine Appearance Cloudy A (Clear) Urine pH 5.5 (4.5-7.5) Ur Specific [place] 1.020 (1.000-1.030) Urine Protein 2+ H (Negative) Urine Glucose (UA) Negative (Negative) Urine Ketones Negative (Negative) Urine Blood 2+ H (Negative) Urine Nitrite Negative (Negative) Urine Bilirubin Negative (Negative) Urine Urobilinogen Negative (Negative) Ur Leukocyte Esterase Negative (Negative) Urine WBC (Auto) 1-5 (0-5) /hpf Urine RBC (Auto) 10-30 H (0-4) /hpf U Hyaline Cast (Auto) 10-30 H (0-5) /lpf U Epithel Cells (Auto) 10-20 H (0-5) /lpf Urine Bacteria (Auto) Negative (Negative) SARS-CoV-2 (PCR) (Negative) 03/16/23 03/16/23 03/16/23 Range/Units 08:40 10:12 10:44 WBC (4.8-10.8) K/ul RBC (4.70-6.10) M/uL Hgb (14.0-18.0) g/dl Hct (42.0-52.0) % MCV (80.0-100.0) fL MCH (25.0-34.0) pg MCHC (32.0-36.0) g/dL RDW Std Deviation (36.4-46.3) fL RDW Coeff of Lisa (11.5-14.5) % Plt Count (130-400) K/uL MPV (9.4-12.4) fL Immature Gran % (Auto) % Neut % (Auto) % Lymph % (Auto) % [place] % (Auto) % Eos % (Auto) % Baso % (Auto) % Neut # (Auto) (1.40-6.50) K/uL Lymph # (Auto) (1.2-3.4) K/uL [place] # (Auto) (0.11-0.59) K/uL Eos # (Auto) (0-0.50) K/uL Baso # (Auto) (0-0.2) K/uL Immature Gran # (Auto) (0.01-0.20) K/uL Sodium (136-145) mmol/L Potassium (3.5-5.1) mmol/L Chloride (98-107) mmol/L Carbon Dioxide (21-32) mmol/L Anion Gap (3-11) BUN (6-23) mg/dl Creatinine (0.6-1.4) mg/dl Est Cr Clr Drug Dosing ml/min Est GFR ( Amer) ml/min Est GFR (Non-Af Amer) ml/min BUN/Creatinine Ratio (10-20) Glucose (70-99(Fasting)) mg/dl POC Glucose 122 H (70-99) mg/dl Calcium (8.6-10.3) mg/dl Magnesium Cancelled (1.7-2.4) mg/dl Total Bilirubin (0.2-1.0) mg/dl AST (13-39) U/L ALT (7-52) U/L Alkaline Phosphatase (34-104) U/L Troponin I High Sens (0-20) pg/ml C-Reactive Protein Cancelled (0-0.5) mg/dl Total Protein (6.0-8.3) gm/dl Albumin (3.4-5.0) gm/dl Globulin (2.5-4.0) gm/dl Albumin/Globulin Ratio (0.9-2) Procalcitonin (0-0.5) ng/ml Urine Color Urine Appearance (Clear) Urine pH (4.5-7.5) Ur Specific [place] (1.000-1.030) Urine Protein (Negative) Urine Glucose (UA) (Negative) Urine Ketones (Negative) Urine Blood (Negative) Urine Nitrite (Negative) Urine Bilirubin (Negative) Urine Urobilinogen (Negative) Ur Leukocyte Esterase (Negative) Urine WBC (Auto) (0-5) /hpf Urine RBC (Auto) (0-4) /hpf U Hyaline Cast (Auto) (0-5) /lpf U Epithel Cells (Auto) (0-5) /lpf Urine Bacteria (Auto) (Negative) SARS-CoV-2 (PCR) POSITIVE A* (Negative) 03/16/23 Range/Units 10:44 WBC (4.8-10.8) K/ul RBC (4.70-6.10) M/uL Hgb (14.0-18.0) g/dl Hct (42.0-52.0) % MCV (80.0-100.0) fL MCH (25.0-34.0) pg MCHC (32.0-36.0) g/dL RDW Std Deviation (36.4-46.3) fL RDW Coeff of Lisa (11.5-14.5) % Plt Count (130-400) K/uL MPV (9.4-12.4) fL Immature Gran % (Auto) % Neut % (Auto) % Lymph % (Auto) % [place] % (Auto) % Eos % (Auto) % Baso % (Auto) % Neut # (Auto) (1.40-6.50) K/uL Lymph # (Auto) (1.2-3.4) K/uL [place] # (Auto) (0.11-0.59) K/uL Eos # (Auto) (0-0.50) K/uL Baso # (Auto) (0-0.2) K/uL Immature Gran # (Auto) (0.01-0.20) K/uL Sodium (136-145) mmol/L Potassium (3.5-5.1) mmol/L Chloride (98-107) mmol/L Carbon Dioxide (21-32) mmol/L Anion Gap (3-11) BUN (6-23) mg/dl Creatinine (0.6-1.4) mg/dl Est Cr Clr Drug Dosing ml/min Est GFR ( Amer) ml/min Est GFR (Non-Af Amer) ml/min BUN/Creatinine Ratio (10-20) Glucose (70-99(Fasting)) mg/dl POC Glucose (70-99) mg/dl Calcium (8.6-10.3) mg/dl Magnesium (1.7-2.4) mg/dl Total Bilirubin (0.2-1.0) mg/dl AST (13-39) U/L ALT (7-52) U/L Alkaline Phosphatase (34-104) U/L Troponin I High Sens (0-20) pg/ml C-Reactive Protein (0-0.5) mg/dl Total Protein (6.0-8.3) gm/dl Albumin (3.4-5.0) gm/dl Globulin (2.5-4.0) gm/dl Albumin/Globulin Ratio (0.9-2) Procalcitonin < 0.05 (0-0.5) ng/ml Urine Color Urine Appearance (Clear) Urine pH (4.5-7.5) Ur Specific [place] (1.000-1.030) Urine Protein (Negative) Urine Glucose (UA) (Negative) Urine Ketones (Negative) Urine Blood (Negative) Urine Nitrite (Negative) Urine Bilirubin (Negative) Urine Urobilinogen (Negative) Ur Leukocyte Esterase (Negative) Urine WBC (Auto) (0-5) /hpf Urine RBC (Auto) (0-4) /hpf U Hyaline Cast (Auto) (0-5) /lpf U Epithel Cells (Auto) (0-5) /lpf Urine Bacteria (Auto) (Negative) SARS-CoV-2 (PCR) (Negative) Administered Medications Discontinued Medications Amlodipine Besylate (Amlodipine Besylate 5 Mg Tab) 5 mg PO DAILY JEANMARIE Stop: 04/16/23 08:59 Last Admin: 03/17/23 08:15 Dose: 5 mg Documented By: SHEKHAR Aspirin (Aspirin 81 Mg Ectab) 81 mg PO QAM JEANMARIE Stop: 04/16/23 08:59 Last Admin: 03/17/23 08:15 Dose: 81 mg Documented By: SHEKHAR Atorvastatin Calcium (Atorvastatin 40 Mg Tab) 80 mg PO QPM JEANMARIE Stop: 04/15/23 20:59 Last Admin: 03/16/23 21:01 Dose: 80 mg Documented By: [id number] Bimatoprost (Bimatoprost 0.01% Op Soln 2.5 Ml Btl) 1 drops OP QPM JEANMARIE Stop: 04/15/23 20:59 Last Admin: 03/16/23 20:59 Dose: 1 drops Documented By: [id number] Cyanocobalamin (Cyanocobalamin (B-12) 500 Mcg Tablet) 2,000 mcg PO DAILY JEANMARIE Stop: 04/16/23 08:59 Last Admin: 03/17/23 08:17 Dose: 2,000 mcg Documented By: SHEKHAR Dabigatran (Dabigatran Etexilate 75 Mg Cap) 150 mg PO BID JEANMARIE Stop: 04/15/23 20:59 Last Admin: 03/17/23 08:13 Dose: 150 mg Documented By: Admin: 03/16/23 21:03 Dose: 150 mg Documented By: [id number] Dorzolamide HCl (Dorzolamide Hcl 2% Oph Soln 10 Ml Btl) 1 drops OP BID JEANMARIE Stop: 04/15/23 20:59 Last Admin: 03/17/23 08:20 Dose: 1 drops Documented By: Admin: 03/16/23 21:01 Dose: 1 drops Documented By: [id number] Dorzolamide/Timolol (Dorzolamide/Timolol 22.3/6.8mg/Ml 10 Ml Btl) 1 drops OP BID JEANMARIE Stop: 04/15/23 20:59 Last Admin: 03/17/23 08:17 Dose: 1 drops Documented By: Admin: 03/16/23 21:01 Dose: 1 drops Documented By: [id number] Doxycycline Hyclate (Doxycycline Hyclate 100 Mg Cap) 100 mg PO BID [facility] Stop: 03/23/23 12:52 Last Admin: 03/17/23 08:20 Dose: 100 mg Documented By: Admin: 03/16/23 21:00 Dose: 100 mg Documented By: [id number] Admin: 03/16/23 14:23 Dose: 100 mg Documented By: RICARDO Escitalopram Oxalate (Escitalopram Oxalate 10 Mg Tab) 10 mg PO QAM JEANMARIE Stop: 04/16/23 08:59 Last Admin: 03/17/23 08:16 Dose: 10 mg Documented By: SHEKHAR Folic Acid (Folic Acid 1 Mg Tab) 2 mg PO DAILY JEANMARIE Stop: 04/16/23 08:59 Last Admin: 03/17/23 08:16 Dose: 2 mg Documented By: SHEKHAR Hydrochlorothiazide (Hydrochlorothiazide 25 Mg Tab) 25 mg PO DAILY JEANMARIE Stop: 04/16/23 08:59 Last Admin: 03/17/23 08:16 Dose: 25 mg Documented By: SHEKHAR Hydroxyzine HCl (Hydroxyzine Hcl 10 Mg Tab) 10 mg PO BID PRN PRN Reason: Anxiety Stop: 04/15/23 20:08 Last Admin: 03/16/23 21:02 Dose: 10 mg Documented By: [id number] Potassium Chloride (K [place] / Wtr) 10 meq in 100 mls @ 100 mls/hr IV ONE ONE Stop: 03/16/23 11:02 Last Infusion: 03/16/23 15:57 Dose: 75 mls/hr Documented By: Infusion: 03/16/23 11:28 Dose: 0 mls/hr Documented By: Admin: 03/16/23 10:10 Dose: 100 mls/hr Documented By: RAINER Potassium Chloride/Sodium Chloride (Normal Saline W/20 Meq Kcl) 20 meq in 1,000 mls @ 75 mls/hr IV .[id number] ONE; Protocol Stop: 03/17/23 02:49 Last Infusion: 03/17/23 05:22 Dose: 0 mls/hr Documented By: [id number] Admin: 03/16/23 14:23 Dose: 75 mls/hr Documented By: RICARDO Potassium Chloride (K [place] / Wtr) 10 meq in 100 mls @ 100 mls/hr IV Q1H JEANMARIE Stop: 03/16/23 15:14 Last Infusion: 03/16/23 18:36 Dose: 0 mls/hr Documented By: Admin: 03/16/23 17:07 Dose: 100 mls/hr Documented By: Infusion: 03/16/23 15:31 Dose: 100 mls/hr Documented By: Admin: 03/16/23 14:31 Dose: 100 mls/hr Documented By: IRCARDO Insulin Aspart (Insulin, Rapid-Acting Pump) 1 each N/A [facility]; Protocol Stop: 04/15/23 16:29 Last Admin: 03/16/23 17:13 Dose: 1 each Documented By: RICARDO Co-signed By: ROSIE Insulin Aspart (Insulin Aspart Per Unit Charge) 0 units SC [facility] Stop: 04/15/23 20:59 Last Admin: 03/17/23 08:12 Dose: 12 units Documented By: SHEKHAR Co-signed By: [email or web address] Admin: 03/16/23 22:06 Dose: Not Given Documented By: [id number] Co-signed By: SHYLA Losartan Potassium (Losartan Potassium 50 Mg Tab) 100 mg PO DAILY [facility] Stop: 04/16/23 08:59 Last Admin: 03/17/23 08:20 Dose: 100 mg Documented By: SHEKHAR Potassium Chloride (Potassium Chloride Crtab 20 Meq Tabcr) 40 meq PO ONE ONE Stop: 03/16/23 10:16 Last Admin: 03/16/23 10:27 Dose: 40 meq Documented By: RAINER Potassium Chloride (Potassium Chloride Crtab 20 Meq Tabcr) 40 meq PO NOW STA Stop: 03/16/23 22:48 Last Admin: 03/16/23 23:08 Dose: 40 meq Documented By: [id number] Trazodone HCl (Trazodone Hcl 100 Mg Tab) 100 mg PO HS [facility] Stop: 04/15/23 20:59 Last Admin: 03/16/23 21:02 Dose: 100 mg Documented By: [id number] Imaging Data Radiologist's Impression: Chest X-Ray 03/16/23 08:22 XR chest 1V portable HISTORY: 82 years-old Male Dyspnea acute shortness of breath COMPARISON: 09/30/2022 TECHNIQUE: AP view of the chest FINDINGS: Cardiac silhouette is enlarged. Left subclavian pacer. No pneumothorax, pleural effusion, airspace consolidation or pulmonary edema. Degenerative changes of the shoulders and spine. Eventration of the right hemidiaphragm. IMPRESSION: Cardiomegaly without acute process. ACT 112: Negative or not required by law. The above report was generated using voice recognition software. It may contain grammatical, syntax or spelling errors. Electronically signed by: Jian Hartmann M.D. 03/16/2023 9:38 AM Discharge Plan Visit Data Chief Complaint: Shortness of Breath/Dyspnea Stated Complaint: DIFFICULTY BREATHING, COUGH - COVID +, TRAVEL ED Provider: Ellie Arreola Discharge Problem: Elevated troponin, COVID-19, Hypokalemia Patient Disposition: Admitted As Inpatient Discharge Instructions Interventions: ED Discharge Assessment Last Done: 03/16/23 12:25
[2023-03-16 08:55] LABS: Appearance Urine Cloudy (Clear); Bacteria Urine Automated Negative (Negative); Bilirubin Urine Negative (Negative); Blood Urine 2+ (Negative); Color Urine Yellow; Glucose Urine UA Negative (Negative); Ketones Urine Negative (Negative); Leukocyte Esterase Urine Negative (Negative); Nitrite Urine Negative (Negative); Protein Urine 2+ (Negative); Urobilinogen Urine Negative (Negative); pH Urine 5.5 (4.5-7.5)
[2023-03-16 09:06] LABS: Basophils # (auto) 0.06 K/uL (0-0.2); Basophils % (auto) 0.9 %; Eosinophils % (auto) 1.4 %; Hematocrit (blood only) 41.4 % (42.0-52.0); Hemoglobin 14.3 g/dl (14.0-18.0); Immature Granulocytes # (auto) 0.03 K/uL (0.01-0.20); Immature Granulocytes % (auto) 0.4 %; Lymphocytes % (auto) 27.4 %; Mean Corpuscular Hgb Conc 34.5 g/dL (32.0-36.0); Mean Corpuscular Volume 92.6 fL (80.0-100.0); Mean Platelet Volume 10.6 fL (9.4-12.4); Monocytes # (auto) 1.58 K/uL (0.11-0.59); Monocytes % (auto) 22.8 %; Neutrophils # (auto) 3.27 K/uL (1.40-6.50); Neutrophils % (auto) 47.1 %; Platelet Count 269 K/uL (130-400); RDW Coefficient of Variation 15.3 % (11.5-14.5); RDW Standard Deviation 51.8 fL (36.4-46.3); Red Blood Count 4.47 M/uL (4.70-6.10); White Blood Count 6.94 K/ul (4.8-10.8)
[2023-03-16 09:18] LABS: Albumin Globulin Ratio 1.3 (0.9-2); Albumin Level 3.9 gm/dl (3.4-5.0); BUN Creatinine Ratio 17.1 (10-20); Bilirubin,Total 0.9 mg/dl (0.2-1.0); Calcium 9.3 mg/dl (8.6-10.3); Creatinine Clr Calc Pharmacy 54.6 ml/min; Est GFR (African American) 70.3 ml/min; Est GFR (Non-African American) 60.7 ml/min; Globulin 3.1 gm/dl (2.5-4.0); Potassium 2.9 mmol/L (3.5-5.1)
[2023-03-16 09:34] LABS: Troponin I High Sensitivity 88.4 pg/ml (0-20)
--- NOTE | 2023-03-16 09:41 | XRay Report ---
XR chest 1V portable HISTORY: 82 years-old Male Dyspnea acute shortness of breath COMPARISON: 09/30/2022 TECHNIQUE: AP view of the chest FINDINGS: Cardiac silhouette is enlarged. Left subclavian pacer. No pneumothorax, pleural effusion, airspace co nsolidation or pulmonary edema. Degenerative changes of the shoulders and spine. Eventration of the r ight hemidiaphragm. IMPRESSION: Cardiomegaly without acute process. ACT 112: Negative or not required by law. The above report was generated using voice recognition software. It may contain grammatical, syntax o r spelling errors. Electronically signed by: Jian Hartmann M.D. 03/16/2023 9:38 AM
[2023-03-16] MEDS ORDERED: POTASSIUM CHLORIDE / WTR 10 MEQ/100 ML PLCT IV ONE (10:03)
[2023-03-16] MEDS ORDERED: POTASSIUM CHLORIDE CRTAB 20 MEQ TABCR PO ONE (10:15)
--- NOTE | 2023-03-16 10:20 | History & Physical Report ---
Date of Service March 16, 2023 Assessment & Plan (1) COVID: Plan: COVID 19 Infection CXR:No signs of Pneumonia Procalcitonin < 0.05 Troponin: 88.4 CRP:1.27 No indication for starting Remdesivir, Dexamethasone currently Isolation precautions--Airborne/Contact Encourage frequent Proning Lasix as needed Albuterol PRN Continue Supplemental Oxygen as needed DVT prophylaxis--on Pradaxa Empiric antibiotics --Doxycycline Hypokalemia Normal magnesium levels Replete and monitor electrolytes as needed Elevated troponin Likely secondary to COVID Denies any chest pain Check resting echo Trend cardiac enzymes Abnormal urinalysis Denies any urinary symptoms Monitor for now Diabetes mellitus Last HbA1c September 2022 8.6 Continue insulin pump Monitor BGs Glycemic pharmacy consulted H/O Complete heart block S/P pacemaker Follows with [facility] Cardiology as outpatient H/O Atrial flutter Continue Pradaxa Currently not on any beta-blockers H/O Myelofibrosis H/O Autoimmune hemolytic anemia S/P splenectomy Follows with oncology as outpatient Monitor CBC Insomnia Glaucoma Dysthymic disorder Hypertension Hyperlipidemia Continue home medications H/O Acquired hypothyroidism Previously on levothyroxine 50 mcg daily Currently not on any medication Check TSH DVT Px: Pradaxa CODE STATUS Full code History of Present Illness Chief Complaint: Cough, Dyspnea Primary Care Provider: Mel Tracy MD Patient is an 82-year-old male with history of diabetes mellitus, complete heart block S/P pacemaker, atrial flutter on chronic anticoagulation with Pradaxa, myelofibrosis S/P splenectomy, insomnia, glaucoma, dysthymic disorder, hypertension, hyperlipidemia, acquired hypothyroidism, seborrheic keratosis psoriasis autoimmune hemolytic anemia and other medical problems presents with history of shortness of breath associated with Non expectorant cough which has been gradually worsening since 3 days duration. Patient returned from a 2-week vacation and started to notice getting weak, having difficulty with ambulation and feels anxious since 3 days duration. He reports having chills this morning and took Tylenol which helped. He was tested positive for COVID in ED. He saturating well on room air. Chest x-ray showed no signs of acute process. Patient took Pradaxa this morning. Denies any history of chest pain, palpitations, dizziness, wheezing, hemoptysis, headache, change in vision, nausea, vomiting, abdominal pain, diarrhea, dysuria, hematuria, recent change in medications . Allergies Allergy/AdvReac Type Severity Reaction Status Date / Time No Known Drug Allergies Allergy Verified 01/09/23 10:35 Home Medications Medication Instructions Recorded Confirmed Type aspirin 81 mg tablet,delayed 81 mg PO QAM 07/12/19 01/09/23 History release atorvastatin 80 mg tablet (Lipitor) 80 mg PO QPM 07/12/19 01/09/23 History bimatoprost 0.01 % eye drops 1 drops ophthalmic (eye) QPM 07/12/19 01/09/23 History (Lumigan) cholecalciferol (vitamin D3) 125 5,000 units PO DAILY 07/12/19 01/09/23 History mcg (5,000 unit) capsule clobetasol 0.05 % topical foam 1 appln topical BID 07/12/19 09/26/22 History escitalopram oxalate 10 mg tablet 10 mg PO QAM 07/12/19 01/09/23 History folic acid 1 mg tablet 2 mg PO DAILY 07/12/19 01/09/23 History omeprazole 20 mg capsule,delayed 20 mg PO DAILY PRN gerd 07/12/19 01/09/23 History release selenium sulfide 2.25 % shampoo 1 appln topical DAILY 07/12/19 01/09/23 History dorzolamide 2 % eye drops 1 drops ophthalmic (eye) BID 03/31/20 01/09/23 History trazodone 50 mg tablet 100 mg PO HS 10/11/20 01/09/23 History insulin lispro 100 unit/mL 100 unit continuous subcutaneous 01/11/22 01/09/23 Rx subcutaneous solution (Humalog infusion DAILY via insulin pump 90 U-100 Insulin) days #90 mL flash glucose sensor (FreeStyle #2 ea 05/20/22 01/09/23 Rx Edgar 2 Sensor kit) blood sugar diagnostic (Contour 06/11/22 09/26/22 History Next Test Strips) dabigatran etexilate 150 mg 150 mg PO BID #180 caps 08/29/22 01/09/23 Rx capsule (Pradaxa) amlodipine 5 mg tablet 5 mg PO DAILY 01/09/23 01/09/23 History dorzolamide 22.3 mg-timolol 6.8 ophthalmic (eye) 01/09/23 01/09/23 History mg/mL eye drops hydrochlorothiazide 25 mg tablet 25 mg PO DAILY 01/09/23 01/09/23 History losartan 100 mg tablet 100 mg PO DAILY 01/09/23 01/09/23 History mecobalamin (vitamin B12) 2,000 mcg PO DAILY 01/09/23 01/09/23 History Past Med/Surg History Medical History Atrial flutter Atrioventricular block, complete BPH NOS w ur obs/LUTS Diabetic peripheral neuropathy Elevated prostate specific antigen (PSA) High cholesterol HTN (hypertension) Myelofibrosis follows with dr bazan [facility] On continuous oral anticoagulation Pacemaker 2012 pacemaker and was replaced with medtronic pacemaker. follows with Dr Martin last check sent over the phone and has checked in office. Type 1 diabetes mellitus with hypoglycemia Vitamin D deficiency Surgical History History of bone marrow biopsy History of cardiac catheterization 2012 History of hernia repair History of splenectomy History of splenectomy History of tonsillectomy and adenoidectomy Family History Mother Hypertension Father Hypertension Brother Prostate cancer Social History Smoking Status: Never smoker Second Hand Exposure: No; Hx Alcohol Use: Yes Alcohol type: beer Alcohol Intake Frequency Comment: Occasional Hx Substance Use: No Preferred Language: Maori Communication Ability: Effective Drug Purchaser Required: No Beliefs That Will Affect Care: None Current Living Situation: Spouse Feels Safe at Home: Yes Assistive Devices: Glasses and Hearing Aid - Bilateral Review of Systems Review of Systems: All systems reviewed & are unremarkable except as noted in Subjective Physical Exam Physical Exam: Physical Exam: Vitals signs as noted above General Appearance:Moderately built and nourished, no apparent distress Head: normocephalic, Atraumatic Eyes: normal inspection, EOMI Neck: supple, Trachea midline Respiratory/Chest: Decreased breath sounds, CTA, No accessory muscle use Cardiovascular: S1, S2, No murmur, +Pacer Abdomen/GI:Soft, Non tender, Bowel sounds present Extremities/Musculoskeletal:normal inspection, 1+ B/L LE edema Neurologic/Psych:AAOX3, grossly no focal neurological deficits Skin: normal color, warm Results & Data Results & Data Vital Signs (Past 12 Hours) Vital Signs Temp Pulse Pulse Resp BP BP Pulse Ox 03/16/23 09:40 60 18 95 03/16/23 09:30 60 17 90 03/16/23 09:30 144/69 H 03/16/23 09:30 144/69 H 03/16/23 09:20 60 18 95 03/16/23 09:10 63 23 94 03/16/23 09:00 60 20 96 03/16/23 09:00 111/61 03/16/23 08:50 60 17 93 03/16/23 08:40 62 21 96 03/16/23 08:36 76 21 95 03/16/23 08:36 137/71 03/16/23 09:09 65 20 111/61 97 03/16/23 08:40 96 03/16/23 08:38 69 03/16/23 08:10 63 20 111/60 95 03/16/23 08:10 95 03/16/23 07:58 36.4 C L 75 18 109/64 94 O2 Del Method 03/16/23 09:40 03/16/23 09:30 03/16/23 09:30 03/16/23 09:30 03/16/23 09:20 03/16/23 09:10 03/16/23 09:00 03/16/23 09:00 03/16/23 08:50 03/16/23 08:40 03/16/23 08:36 03/16/23 08:36 03/16/23 09:09 Room Air 03/16/23 08:40 Room Air 03/16/23 08:38 03/16/23 08:10 Room Air 03/16/23 08:10 Room Air 03/16/23 07:58 Room Air Laboratory Results Short CBC 03/16/23 Range/Units 08:32 WBC 6.94 (4.8-10.8) K/ul Hgb 14.3 (14.0-18.0) g/dl Hct 41.4 L (42.0-52.0) % Plt Count 269 (130-400) K/uL BMP 03/16/23 08:32 Sodium 136 Potassium 2.9 L Chloride 98 Carbon Dioxide 28 BUN 19 Creatinine 1.11 Glucose 153 H Calcium 9.3 Liver Function 03/16/23 Range/Units 08:32 Total Bilirubin 0.9 (0.2-1.0) mg/dl AST 42 H (13-39) U/L ALT 24 (7-52) U/L Alkaline Phosphatase 70 (34-104) U/L Albumin 3.9 (3.4-5.0) gm/dl Urine 03/16/23 Range/Units 08:33 Urine Color Yellow Urine Appearance Cloudy A (Clear) Urine pH 5.5 (4.5-7.5) Ur Specific Perrin 1.020 (1.000-1.030) Urine Protein 2+ H (Negative) Urine Glucose (UA) Negative (Negative) Diagnostic Findings CXR:Cardiomegaly without acute process. ECG Additional Comments: EKG: Ventricular paced rhythm, complete heart block, QTc 553
[2023-03-16 11:37] LABS: C Reactive Protein 1.27 mg/dl (0-0.5)
[2023-03-16] MEDS ORDERED: ACETAMINOPHEN 325 MG TAB PO PRN (12:53)
[2023-03-16] MEDS ORDERED: PROMETHAZINE HCL 6.25 MG in SODIUM CHLORIDE 0.9% 50 ML IV PRN (12:53)
[2023-03-16] MEDS ORDERED: LEVALBUTEROL HCL 0.63 MG/3 ML NEB NEB PRN (12:53)
[2023-03-16] MEDS ORDERED: DEXTROSE 50% 50 ML SYRINGE IV PRN ×2 (12:53→20:47)
[2023-03-16] MEDS ORDERED: BENZONATATE 100 MG CAPSULE PO PRN (12:53)
[2023-03-16] MEDS ORDERED: GLUCOSE 10 TAB/TUBE PO PRN ×2 (12:53→20:47)
[2023-03-16] MEDS ORDERED: GLUCAGON FOR INJ 1 MG VIAL SQ PRN ×2 (12:53→20:47)
[2023-03-16] MEDS ORDERED: PANTOprazole 40 MG TAB PO PRN (12:53)
[2023-03-16] MEDS ORDERED: guaiFENesin/DEXTROM SYRUP 200MG/20MG 10ML UDC PO PRN (12:53)
[2023-03-16] MEDS ORDERED: GLUCOSE 40% GEL 15 GM TUBE PO PRN ×2 (12:53→20:47)
[2023-03-16] MEDS ORDERED: CARBOHYDRATES FOR HYPOGLYCEMIA PO PRN ×2 (12:53→20:47)
[2023-03-16] MEDS ORDERED: PHARMACY GLYCEMIC MGMT CONSULT PRN ×2 (12:53→20:47)
[2023-03-16] MEDS ORDERED: POLYETHYLENE (MIRALAX) 17 GM PACK PO PRN (12:53)
[2023-03-16] MEDS ORDERED: NSS + 20MEQ KCL 20 MEQ/1,000 ML BAG IV ONE (13:30)
[2023-03-16] MEDS ORDERED: INSULIN ASPART 100 UNITS/ML VIAL SC PRN (13:45)
[2023-03-16] MEDS: DOXYCYCLINE HYCLATE 100 MG CAP PO SCH ×2 (14:23→21:00)
[2023-03-16] MEDS: POTASSIUM CHLORIDE / WTR 10 MEQ/100 ML PLCT IV SCH ×2 (14:31→17:07)
[2023-03-16] MEDS ORDERED: INSULIN, Rapid-Acting PUMP SCH (16:30)
--- NOTE | 2023-03-16 19:08 | XCELERA ---
[id number] \\[email or web address]\[id number]
[2023-03-16] MEDS ORDERED: hydrOXYzine HCl 10 MG TAB PO PRN (20:09)
[2023-03-16] MEDS ORDERED: MELATONIN 3 MG TAB PO PRN (20:09)
[2023-03-16] MEDS ORDERED: ATORVASTATIN 40 MG TAB PO SCH (21:00)
[2023-03-16] MEDS ORDERED: BIMATOPROST 0.01% OP SOLN 2.5 ML BTL OP SCH (21:00)
[2023-03-16] MEDS ORDERED: traZODone HCL 100 MG TAB PO SCH (21:00)
[2023-03-16] MEDS: DORZOLAMIDE HCL 2% OPH SOLN 10 ML BTL OP SCH (21:01)
[2023-03-16] MEDS: DORZOLAMIDE/TIMOLOL 22.3/6.8MG/ML 10 ML BTL OP SCH (21:01)
[2023-03-16] MEDS: DABIGATRAN ETEXILATE 75 MG CAP PO SCH (21:03)
[2023-03-16] MEDS: INSULIN ASPART PER UNIT CHARGE SC SCH (22:06)
[2023-03-16 22:24] LABS: Calcium 9.4 mg/dl (8.6-10.3); Potassium 3.1 mmol/L (3.5-5.1)
[2023-03-16 22:30] LABS: BUN Creatinine Ratio 17.8 (10-20); Creatinine Clr Calc Pharmacy 51.4 ml/min; Est GFR (African American) 65.3 ml/min; Est GFR (Non-African American) 56.3 ml/min
[2023-03-16] MEDS ORDERED: POTASSIUM CHLORIDE CRTAB 20 MEQ TABCR PO STA (22:47)
[2023-03-16 23:02] LABS: Troponin I High Sensitivity 61.6 pg/ml (0-20)
[2023-03-17 06:29] LABS: Hematocrit (blood only) 40.9 % (42.0-52.0); Hemoglobin 13.9 g/dl (14.0-18.0); Mean Platelet Volume 10.9 fL (9.4-12.4); Platelet Count 266 K/uL (130-400); RDW Coefficient of Variation 15.5 % (11.5-14.5); RDW Standard Deviation 54.3 fL (36.4-46.3); Red Blood Count 4.35 M/uL (4.70-6.10); White Blood Count 7.11 K/ul (4.8-10.8)
[2023-03-17 06:58] LABS: Albumin Level 3.6 gm/dl (3.4-5.0); Bilirubin,Total 0.8 mg/dl (0.2-1.0); Calcium 8.8 mg/dl (8.6-10.3); Magnesium 1.8 mg/dl (1.7-2.4); Potassium 4.1 mmol/L (3.5-5.1)
[2023-03-17 06:59] LABS: Albumin Globulin Ratio 1.3 (0.9-2); BUN Creatinine Ratio 15.2 (10-20); Creatinine Clr Calc Pharmacy 54.1 ml/min; Est GFR (African American) 69.5 ml/min; Globulin 2.7 gm/dl (2.5-4.0); Total Protein 6.3 gm/dl (6.0-8.3)
[2023-03-17] MEDS: INSULIN ASPART PER UNIT CHARGE SC SCH (08:12)
[2023-03-17] MEDS: DABIGATRAN ETEXILATE 75 MG CAP PO SCH (08:13)
[2023-03-17] MEDS: DORZOLAMIDE/TIMOLOL 22.3/6.8MG/ML 10 ML BTL OP SCH (08:17)
[2023-03-17] MEDS: DOXYCYCLINE HYCLATE 100 MG CAP PO SCH (08:20)
[2023-03-17] MEDS: DORZOLAMIDE HCL 2% OPH SOLN 10 ML BTL OP SCH (08:20)
[2023-03-17] MEDS ORDERED: LOSARTAN POTASSIUM 50 MG TAB PO SCH (09:00)
[2023-03-17] MEDS ORDERED: NON-FORMULARY MEDICATION (Insulin Lispro [Humalog U-100 Insulin] 100 unit/mL solution) continuous subcutaneous infusion SCH (09:00)
[2023-03-17] MEDS ORDERED: FOLIC ACID 1 MG TAB PO SCH (09:00)
[2023-03-17] MEDS ORDERED: ASPIRIN 81 MG ECTAB PO SCH (09:00)
[2023-03-17] MEDS ORDERED: hydroCHLOROthiazide 25 MG TAB PO SCH (09:00)
[2023-03-17] MEDS ORDERED: amLODIPine BESYLATE 5 MG TAB PO SCH (09:00)
[2023-03-17] MEDS ORDERED: CYANOCOBALAMIN (B-12) 500 MCG TABLET PO SCH (09:00)
[2023-03-17] MEDS ORDERED: ESCITALOPRAM OXALATE 10 MG TAB PO SCH (09:00)
[2023-03-17] MEDS ORDERED: INSULIN, Rapid-Acting PUMP SCH (10:30)
--- NOTE | 2023-03-17 12:23 | Discharge Summary ---
Date of Service March 17, 2023 Admission HPI Per Admitting Provider Patient is an 82-year-old male with history of diabetes mellitus, complete heart block S/P pacemaker, atrial flutter on chronic anticoagulation with Pradaxa, myelofibrosis S/P splenectomy, insomnia, glaucoma, dysthymic disorder, hypertension, hyperlipidemia, acquired hypothyroidism, seborrheic keratosis psoriasis autoimmune hemolytic anemia and other medical problems presents with history of shortness of breath associated with Non expectorant cough which has been gradually worsening since 3 days duration. Patient returned from a 2-week vacation and started to notice getting weak, having difficulty with ambulation and feels anxious since 3 days duration. He reports having chills this morning and took Tylenol which helped. He was tested positive for COVID in ED. He saturating well on room air. Chest x-ray showed no signs of acute process. Patient took Pradaxa this morning. Denies any history of chest pain, palpitations, dizziness, wheezing, hemoptysis, headache, change in vision, nausea, vomiting, abdominal pain, diarrhea, dysuria, hematuria, recent change in medications . Principal Diagnosis COVID-19 infection Discharge Exam Constitutional: WD/WN, vitals as above, NAD, sitting up in bed, pleasant, conversing easily Respiratory: normal respiratory effort, lungs clear to auscultation, no wheeze, rales, rhonchi. Normal insp/exp effort, no accessory muscle use Cardiovascular: RRR, no murmur, no edema Vessels: no JVD or carotid bruit Chest: normal inspection of chest Abdomen: normal bowel sounds, soft, nontender, no hepatosplenomegaly Musculoskeletal: no cyanosis or clubbing, extremities motor strength 5/5 Skin: no rashes, warm and dry normal turgor Neurologic: PERRL, EOMI, accommodation nl, no face palsy, no dysarthria CN's II- XI intact bilaterally and moves all extremities Psychiatric: A+Ox3, euthymic affect Discharge Data Allergies Allergy/AdvReac Type Severity Reaction Status Date / Time No Known Drug Allergies Allergy Verified 01/09/23 10:35 Consultations 03/16/23 10:15 ED Decision to Admit Stat Hospital Course (1) COVID: Patient is a 82-year-old male with past medical history of type 2 diabetes mellitus, complete heart block S/P pacemaker, atrial flutter on chronic anticoagulation with Pradaxa, myelofibrosis S/P splenectomy, insomnia, glaucoma, dysthymic disorder, hypertension, hyperlipidemia, acquired hypothyroidism, seborrheic keratosis psoriasis autoimmune hemolytic anemia presented with shortness of breath for 3 days. Patient had recently gotten back from a vacation. On presentation to the ED, patient was afebrile, normotensive and saturating well on room air. COVID-19 PCR was positive. Chest x-ray did not show any pneumonia. Patient was found to have elevated high-sensitivity troponin. He was admitted to telemetry floor for further monitoring. Echocardiogram was done which showed ejection fraction of 55 to 60% with normal systolic function. Patient continued to saturate well in room air; did not require any supplemental oxygen. After being monitored overnight, patient was discharged home with instruction to follow-up with his primary care doctor. Total Time Total Time Spent Total Time Spent (In Minutes): 35 Total Time Includes: Examination of the Patient, Discharge Planning, Medication Reconciliation, Communication With Other Providers and Other Discharge Plan Discharge Items Patient Disposition: Home - Self-Care Reason For Visit: COVID Discharge Diagnosis: COVID-19 infection Activity: Resume your previous activity Non-emergency contact: Primary Care Provider Call non-emergency contact if: you have any medication questions and your symptoms worsen Follow-up/Referrals: Mel Tracy MD [Primary Care Provider] - 03/24/23 10:20 am (Date & Time 03/24/2023 10:20 AM Provider Mel Tracy MD [facility] ) Diet: Regular Addtl Attending Provider Instructions: You were admitted to the hospital with concern for COVID infection. The chest x-ray did not show any pneumonia. Echocardiogram was done as you are heart enzymes were slightly high. Ejection fraction of 55 to 60% which is within normal limits. Please take it easy for 3 more days. An appointment will be set up with your primary care doctor for sometime later this week or next week. Pending Studies at Discharge: No Stand-Alone Forms: My [employer], Smoking Cessation Medications and DC Order Prescriptions: Continued insulin lispro [Humalog U-100 Insulin] 100 unit/mL solution 100 unit continuous subcutaneous infusion DAILY 90 Days Qty: 90 3RF (DME) FreeStyle Edgar 2 Sensor Kit See Rx Instructions .Route Qty: 2 0RF Rx Instructions: Change q14d Pradaxa 150 mg capsule 150 mg PO BID Qty: 180 3RF aspirin 81 mg tablet,delayed release (DR/EC) 81 mg PO QAM atorvastatin [Lipitor] 80 mg tablet 80 mg PO QPM clobetasol 0.05 % foam 1 appln TOP BID PRN (Reason: Other) escitalopram oxalate 10 mg tablet 10 mg PO QAM folic acid 1 mg tablet 2 mg PO DAILY Lumigan 0.01 % drops 1 drops OP QPM omeprazole 20 mg capsule,delayed release(DR/EC) 20 mg PO DAILY PRN (Reason: gerd) selenium sulfide 2.25 % shampoo 1 appln TOP DAILY cholecalciferol (vitamin D3) 5,000 unit capsule 5,000 units PO DAILY dorzolamide-timolol 22.3-6.8 mg/mL drops ophthalmic (eye) hydrochlorothiazide 25 mg tablet 25 mg PO DAILY losartan 100 mg tablet 100 mg PO DAILY amlodipine 5 mg tablet 5 mg PO DAILY mecobalamin (vitamin B12) 2,000 mcg PO DAILY trazodone 50 mg tablet 100 mg PO HS (DME) Contour Next Test Strips Strip See Rx Instructions .ROUTE .MEDSUPPLY Rx Instructions: Test blood sugars 2 times a day dorzolamide 2 % drops 1 drops OP BID Discharge Orders: Discharge Order (Routine); Ordered 03/17/23 Ordered By: Matthew Nuñez Admission Data Admit Date/Time: 03/16/23 10:52 Attending Provider: Matthew Nuñez Admit Provider: Radhames Chu Primary Care Provider: Mel Tracy Other Providers: Radhames Chu Other Interventions: Discharge Summary Assessment (RN) Last Done: 03/17/23 11:11
--- NOTE | 2023-03-17 18:07 | Electrocardiogram Report ---
Test Reason : Blood Pressure : / mmHG Vent. Rate : 067 BPM Atrial Rate : 174 BPM P-R Int : 000 ms QRS Dur : 202 ms QT Int : 524 ms P-R-T Axes : 000 -03 128 degrees QTc Int : 553 ms Sinus tachycardia vs flutter with complete heart block and Ventricular-paced rhythm Abnormal ECG When compared with ECG of 17-JUN-2017 13:42, Sinus rhythm is now with complete heart block Confirmed by Jose M Gautam ([id number]) on 03/17/2023 6:06:51 PM Referred By: REFERRED SELF Confirmed By:Jayant Gautam
--- NOTE | 2023-03-17 18:13 | Electrocardiogram Report ---
Test Reason : Blood Pressure : / mmHG Vent. Rate : 069 BPM Atrial Rate : 065 BPM P-R Int : 000 ms QRS Dur : 188 ms QT Int : 516 ms P-R-T Axes : 000 115 123 degrees QTc Int : 552 ms Ventricular-paced rhythm Abnormal ECG When compared with ECG of 16-MAR-2023 08:27, (unconfirmed) Sinus rhythm is no longer with complete heart block Vent. rate has increased BY 2 BPM Confirmed by Jose M Gautam ([id number]) on 03/17/2023 6:12:34 PM Referred By: REFERRED SELF Confirmed By:Jayant Gautam
--- NOTE | 2023-03-18 16:26 | Communication Note ---
Date of Service: March 18, 2023 Code 44 attestation: 82-year old male was admitted with dry cough secondary to COVID and noted to have increased troponin. Managed appropriately and was seen by the circular saw filer. He was discharged home in a reasonable medical condition. By CMS guidelines, a determination that the admission or continued stay is not medically necessary has been made by a member of the UR committee and a physician for this hospital stay, therefore a Code 44 will be completed and the Inpatient admission will be changed to outpatient. Dr Rupa Greene Member UR Committee
== END 2023-03-17 12:16 | disposition home or self-care (01) ==
LOC: ED 07:52 → SUATTDRO 10:52 → 2W 10:52 → INTOOBSV 10:52 → 2W 12:25